=== PATIENT | male | born 1955 | race Caucasian/White ===

== ENCOUNTER 2019-11-02 11:52 | Outpatient (CLI) | payer OTHER, SELFPAY ==
--- NOTE | ~2019-11-02 | CT_ITS ---
EXAMINATION: CT abdomen pelvis w con DATE: 11/02/2019 13:10 INDICATION: Static bladder cancer presenting with acute abdominal pain. TECHNIQUE: Computed tomography (CT) of the abdomen and pelvis was performed with 100 mL Omnipaque-350 intravenous contrast. Automated exposure control and iterative reconstruction technique were employe d. The dose-length product was 289.15 mGy-cm. COMPARISON: 08/18/2019 FINDINGS: Minimal right basilar atelectasis. Heart size is normal. No pericardial or pleural effusion. Tip of a central venous catheter in the high right atrium. Fluid distention of the stomach with small amount of residual versus refluxed fluid in the distal esophagus. Mild central intrahepatic biliary ductal d ilation. No significant change in a 1.9 cm enhancing subcapsular hemangioma in the right hepatic lobe . The gallbladder and common bile duct are normal. Spleen, pancreas, left adrenal gland and left kidn ey are normal. There is mild right perinephric stranding with prominent urothelial enhancement at the right renal pe lvis. There is diffuse mildly delayed right nephrogram. Interval increase in extent of more distinct geographic regions of heterogeneous decreased cortical enhancement throughout the right kidney is mos t prominent in the anterior interpolar region of the right kidney. Findings are suspicious for pyelon ephritis. The right renal vein enhances to a less degree than the left renal vein which could be due to decreased perfusion although could not exclude tumor thrombus. There are new prominent contrast-en hanced right perinephric collateral vessels. No hydronephrosis. New 1.0 x 2.0 cm right adrenal nodule . Bladder is normal. Mild diverticulosis most prominent at the junction of the descending and sigmoid colon without adjace nt inflammatory change to suggest diverticular disease. Small bowel and appendix are normal. Prostate is normal. No free intraperitoneal gas or fluid. No pathologically enlarged abdominal or pelvic lymp hadenopathy. There is calcified atherosclerosis of the aorta and many of the other arteries. Increasi ng sclerosis at the margins of a lytic lesion enhancement on prior MRI consistent with metastatic dis ease at the superior aspect of L2 with destruction of a portion of the superior endplate. Mild thorac olumbar spondylosis. Interval healing of a prior pathologic fracture along the anterior margin of an additional lytic lesion at the left inferior pubic ramus. The lytic lesion appears smaller with new p eripheral rim sclerosis consistent with treated metastatic disease. IMPRESSION: 1. Delayed right nephrogram with geographic regions of further decrease in enhancement which could re present either pyelonephritis, infarcts or combination thereof with findings suggesting decreased per fusion including decreased enhancement of the left renal vein (there is a potentially enhancing tumor thrombus within the renal vein) and the presence of new left perinephric collaterals. 2. Increasing sclerosis at the margins of lytic lesions at L2 and the left inferior pubic ramus cyst with response to treatment of metastatic disease. 3. New 2.0 x 1.0 cm right adrenal nodule which could be metastatic, infectious or hemorrhage. Reviewed, dictated and finalized at location A. LUGGER IMPRESSION: 1. Delayed right nephrogram with geographic regions of further decrease in enha ncement which could represent either pyelonephritis, infarcts or combination th ereof with findings suggesting decreased perfusion including decreased enhancem ent of the left renal vein (there is a potentially enhancing tumor thrombus wit hin the renal vein) and the presence of new left perinephric collaterals. 2. Increasing sclerosis at the margins of lytic lesions at L2 and the left infe rior pubic
[2019-11-02 12:28] LABS: Basophils Absolute Auto 0.03 K/mm3 (0.00-0.10); Basophils Percent Auto 0.4 % (0.0-1.0); Eosinophils Absolute Auto 0.04 K/mm3 (0.02-0.50); Eosinophils Percent Auto 0.5 % (1.0-6.0); Hematocrit 32.4 % (40.0-54.0); Hemoglobin 11.1 g/dL (14.0-18.0); Immature Granulocyte Absolute 0.04 K/mm3 (0.00-0.00); Immature Granulocyte Percent A 0.5 % (0.0-0.0); Lymphocytes Absolute Auto 0.78 K/mm3 (1.10-4.50); Lymphocytes Percent Auto 10.3 % (18.0-42.0); Mean Corpuscular HGB Conc 34.3 g/dL (32.0-36.0); Mean Corpuscular Hemoglobin 30.2 pg (27.0-31.0); Mean Corpuscular Volume 88.3 fL (78.0-102.0); Mean Platelet Volume 8.8 fl (8.7-11.0); Monocytes Absolute Auto 0.67 K/mm3 (0.10-0.90); Monocytes Percent Auto 8.9 % (2.0-11.0); Neutrophils Percent Auto 79.4 % (50.0-70.0); Platelet Count Result 267 K/mm3 (150-420); Red Blood Count 3.67 M/mm3 (4.70-6.10); Red Cell Distribution Width 11.4 % (11.6-14.4); White Blood Count 7.5 K/mm3 (4.8-10.8)
[2019-11-02 12:43] LABS: Alanine Aminotransferase 11 U/L (16-63); Albumin Level 3.5 g/dL (3.4-5.0); Alkaline Phosphatase 103 U/L (46-116); Aspartate Amino Transferase 11 U/L (15-37); Bilirubin,Total 0.3 mg/dL (0.00-1.00); Blood Urea Nitrogen 16 mg/dL (7-18); Carbon Dioxide 30 mmol/L (21-32); Chloride 100 mmol/L (98-108); Estimated Glomerular Filt Rate 58; Glucose 149 mg/dL (70-99); Osmolality Calculated 294 mOsm/kg (285-295); Sodium 140 mmol/L (136-145); Total Protein 7.8 g/dL (6.4-8.2)
== END 2019-11-02 11:53 | disposition home or self-care (01) ==
LOC: CHSLAB 11:54
PROVIDERS: PCP Internal Medicine; Visit Provider Internal Medicine
DX: C67.9 Malignant neoplasm of bladder, unspecified (principal); R10.9 Unspecified abdominal pain
CPT/HCPCS: 36415; 74177; 80053; 85025; Q9965

== ENCOUNTER 2019-12-06 07:33 | Outpatient (CLI) | payer OTHER, SELFPAY ==
--- NOTE | ~2019-12-06 | CT_ITS ---
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 Additional 3D reconstructions utilizing coronal maximum intensity projection (MIP) were per formed. Automated exposure control and iterative reconstruction technique were employed. The dose-sloan gth product was 138.51 mGy-cm. COMPARISON: 08/18/2019 FINDINGS: Right internal jugular central venous port catheter with distal tip at the high right atrium. Unchang ed mild linear atelectasis/scarring at the left apex and right middle lobe. No suspicious pulmonary n odules, pneumonia, pulmonary edema or pleural effusion. Heart size is normal. No pericardial effusion . Thoracic aorta is normal in caliber with no dissection. Interval increase in size of a previously 1 .5 x 0.5 cm precarinal lymph node now measuring 2.3 x 1.1 cm. Similar increase in size of a less well -defined cluster of AP window lymph nodes. Increase in size of a now 3.7 x 2.8 cm right adrenal mass, most recently measuring 2.0 x 1.0 cm. There is effacement of the fat plane between the mass and the inferior vena cava with contour suggesting invasion of the inferior vena cava. Marked enlargement of the upper pole of the right kidney which now demonstrates relatively uniform hypoenhancement and with out appreciable surrounding perinephric stranding which is concerning for metastasis replacing the re nal tissue. The left adrenal gland and visualized upper pole of the left kidney are normal. Again see n is a hyperenhancing likely hemangioma at the periphery of the right hepatic lobe which can be seen dating back to 05/08/2017. No suspicious lytic or blastic bone lesions. IMPRESSION: 1. Significant interval increase in size of likely metastatic mediastinal lymphadenopathy. 2. Increase in size of a now 3.7 x 2.8 cm likely metastatic right adrenal mass which appears to poten tially invade the inferior vena cava. 3. Significant interval enlargement of the upper pole of the right kidney which is now homogeneously hypoenhancing but without surrounding inflammatory stranding to suggest either infarct or infection a nd this also concerning for metastatic disease. Reviewed, dictated and finalized at location A. IMPRESSION: 1. Significant interval increase in size of likely metastatic mediastinal lymph adenopathy. 2. Increase in size of a now 3.7 x 2.8 cm likely metastatic right adrenal mass which appears to potentially invade the inferior vena cava. 3. Significant interval enlargement of the upper pole of the right kidney which is now homogeneously hypoenhancing but without surrounding inflammatory strand ing to suggest either infarct or infection and this also concerning for metasta tic disease.
[2019-12-06 07:53] LABS: Estimated Glomerular Filt Rate 59
== END 2019-12-06 07:34 | disposition home or self-care (01) ==
LOC: CHSIMG 07:35
PROVIDERS: PCP Internal Medicine; Visit Provider Internal Medicine Hematology & Oncology
DX: C67.9 Malignant neoplasm of bladder, unspecified (principal); C79.51 Secondary malignant neoplasm of bone
CPT/HCPCS: 71260; Q9965

== ENCOUNTER 2019-12-09 13:58 | Outpatient (CLI) | payer OTHER, SELFPAY ==
--- NOTE | ~2019-12-09 | CT_ITS ---
EXAMINATION: CT soft tissue neck w con DATE: 12/09/2019 14:25 INDICATION: Cervical lymphadenopathy. Bladder cancer. TECHNIQUE: Computed tomography (CT) of the neck was performed with 75 mL Omnipaque-350 intravenous co ntrast. Automated exposure control and iterative reconstruction technique were employed. The dose-sloan gth product was 341.06 mGy-cm. COMPARISON: Neck CT 04/06/2019 FINDINGS: There is a 10 x 12 mm lymph node in the superior right paratracheal chain that is newly enl arged. There is a 10 x 10 mm node in right tracheoesophageal groove that is newly enlarged. Enlarged lymph nodes previously seen in the mediastinum and left neck have resolved. There is mild plaque in p roximal left internal carotid artery with 0% stenosis relative to normal distal artery lumen diameter . There is mild mucosal thickening in right maxillary sinus. Partially visualized is a right internal jugular port. There is severe cervical spondylosis. IMPRESSION: 1. Mildly enlarged lymph nodes in the superior right paratracheal chain and right tracheoesophageal g roove with interval worsening, consistent with metastatic disease. Enlarged nodes previously seen in the mediastinum and left neck have resolved. Reviewed, dictated and finalized at location A. IMPRESSION: 1. Mildly enlarged lymph nodes in the superior right paratracheal chain and rig ht tracheoesophageal groove with interval worsening, consistent with metastatic disease. Enlarged nodes previously seen in the mediastinum and left neck have resolved.
== END 2019-12-09 13:59 | disposition home or self-care (01) ==
LOC: CHSIMG 13:59
PROVIDERS: PCP Internal Medicine; Visit Provider Internal Medicine Hematology & Oncology
DX: C67.9 Malignant neoplasm of bladder, unspecified (principal)
CPT/HCPCS: 70491; Q9965

== ENCOUNTER 2019-12-20 07:52 | Outpatient (CLI) | payer OTHER, SELFPAY ==
[2019-12-20] VITALS (11 sets, daily range): BP systolic 90–128; BP diastolic 53–70; PULSE 76–92; RESP 14–16; TEMP 35.9–37.2; O2SAT 96–98
[2019-12-20 08:17] LABS: Basophils Absolute Auto 0.05 K/mm3 (0.00-0.10); Basophils Percent Auto 0.4 % (0.0-1.0); Eosinophils Absolute Auto 0.15 K/mm3 (0.02-0.50); Eosinophils Percent Auto 1.2 % (1.0-6.0); Immature Granulocyte Absolute 0.15 K/mm3 (0.00-0.00); Immature Granulocyte Percent A 1.2 % (0.0-0.0); Lymphocytes Absolute Auto 1.85 K/mm3 (1.10-4.50); Lymphocytes Percent Auto 15.4 % (18.0-42.0); Mean Corpuscular HGB Conc 32.2 g/dL (32.0-36.0); Mean Corpuscular Hemoglobin 28.1 pg (27.0-31.0); Mean Corpuscular Volume 87.3 fL (78.0-102.0); Mean Platelet Volume 8.9 fl (8.7-11.0); Monocytes Absolute Auto 1.06 K/mm3 (0.10-0.90); Monocytes Percent Auto 8.8 % (2.0-11.0); Neutrophils Absolute Auto 8.8 K/mm3 (1.7-7.2); Platelet Count Result 669 K/mm3 (150-420); Red Blood Count 2.28 M/mm3 (4.70-6.10); Red Cell Distribution Width 13.7 % (11.6-14.4); White Blood Count 12.1 K/mm3 (4.8-10.8)
[2019-12-20 08:18] LABS: Hemoglobin 6.4 g/dL (14.0-18.0)
[2019-12-20 08:19] LABS: Hematocrit 19.9 % (40.0-54.0)
[2019-12-20 08:27] LABS: Alanine Aminotransferase 18 U/L (16-63); Albumin Level 2.5 g/dL (3.4-5.0); Alkaline Phosphatase 91 U/L (46-116); Anion Gap 15.1 mmol/L (7-16); Aspartate Amino Transferase 18 U/L (15-37); Bilirubin,Total 0.2 mg/dL (0.00-1.00); Blood Urea Nitrogen 21 mg/dL (7-18); Calcium 9.4 mg/dL (8.5-10.1); Carbon Dioxide 27 mmol/L (21-32); Chloride 97 mmol/L (98-108); Estimated Glomerular Filt Rate 50; Glucose 142 mg/dL (70-99); Osmolality Calculated 285 mOsm/kg (285-295); Potassium 4.1 mmol/L (3.5-5.1); Sodium 135 mmol/L (136-145); Total Protein 6.8 g/dL (6.4-8.2)
[2019-12-20] MEDS: ACETAMINOPHEN 325 MG TABLET 650 MG PO (09:51)
[2019-12-20] MEDS: SODIUM CHLORIDE 0.9% IV 250 ML 30 ML IVPB (09:52)
[2019-12-20 12:24] LABS: Hematocrit 20.5 % (40.0-54.0)
[2019-12-20 12:26] LABS: Hemoglobin 6.6 g/dL (14.0-18.0)
[2019-12-20 15:26] LABS: Hematocrit 24.1 % (40.0-54.0)
[2019-12-20] MEDS: LORAZEPAM INJ 2 MG/ML VIAL 0.5 MG IV PUSH (15:30)
[2019-12-20] MEDS: FAMOTIDINE 20 MG/ISO 50 ML 20 MG/50 ML BAG 150 MG IVPB (15:32)
[2019-12-20] MEDS: SODIUM CHLORIDE 0.9% IV 250 ML 40 ML IVPB (15:34)
--- NOTE | 2019-12-20 15:48 | PC.NURSE ---
1532 Famotidine 20 mg IVPB administered over 20 min. start 1532 stop 1552.
[2019-12-20] MEDS: PALONOSETRON HCL 0.25 MG/5 ML VIAL IV PUSH (16:22)
[2019-12-20] MEDS: FOSAPREPITANT DIMEGLUMINE 150 MG in SODIUM CHLORIDE 0.9% IV 150 ML 300 MG IVPB (16:23)
[2019-12-20] MEDS: HEPARIN SOD FLUSH 500 UNITS/5 ML SYRINGE IV PUSH (17:58)
--- NOTE | 2019-12-20 18:08 | PC.NURSE ---
Patient here for Gemcitabine and carboplatin chemo infusion. Patient was treat last Jul and Aug with same regimen, but had stop r/t other health issues, but now is starting back up on chemo. Blood work reviewed. Hgb 6.4. Dr. Cotto notified. New orders to given 2 units of prbc's and recheck H/H. if >7.0 proceed with Chemo. Hgb 8.0 Proceeded with chemo. Pre Meds and Chemo administered. Patient tolerated well. Safe exit of hospital. Will return next 3 days for Zarxio injection.
== END 2019-12-20 07:53 | disposition home or self-care (01) ==
PROVIDERS: PCP Internal Medicine; Visit Provider Internal Medicine Hematology & Oncology
DX: Z51.11 Encounter for antineoplastic chemotherapy (principal); C67.9 Malignant neoplasm of bladder, unspecified; D70.1 Agranulocytosis secondary to cancer chemotherapy
CPT/HCPCS: 36415; 36430; 80053; 85014; 85018; 85025; 85055; 86850; 86900; 86901; 86923; 96365; 96367; 96374; 96375; 96413; 96417; A9270; J1200; J2060; J2469; J7050; P9016

== ENCOUNTER 2019-12-21 13:44 | Outpatient (CLI) | payer OTHER, SELFPAY ==
[2019-12-21] MEDS: FILGRASTIM-SNDZ 300 MCG/0.5 ML SYRINGE SUB-Q (14:16)
== END 2019-12-21 13:45 | disposition home or self-care (01) ==
PROVIDERS: PCP Internal Medicine; Visit Provider Internal Medicine Hematology & Oncology
DX: C67.9 Malignant neoplasm of bladder, unspecified (principal); D70.1 Agranulocytosis secondary to cancer chemotherapy
CPT/HCPCS: 96372; Q5101

== ENCOUNTER 2019-12-22 13:40 | Outpatient (CLI) | payer OTHER, SELFPAY ==
[2019-12-22] MEDS: FILGRASTIM-SNDZ 300 MCG/0.5 ML SYRINGE SUB-Q (14:12)
== END 2019-12-22 13:41 | disposition home or self-care (01) ==
PROVIDERS: PCP Internal Medicine; Visit Provider Internal Medicine Hematology & Oncology
DX: C67.9 Malignant neoplasm of bladder, unspecified (principal); D70.1 Agranulocytosis secondary to cancer chemotherapy
CPT/HCPCS: 96372; Q5101

== ENCOUNTER 2019-12-23 13:55 | Outpatient (CLI) | payer OTHER, SELFPAY ==
[2019-12-23] MEDS: FILGRASTIM-SNDZ 300 MCG/0.5 ML SYRINGE SUB-Q (14:13)
== END 2019-12-23 13:56 | disposition home or self-care (01) ==
PROVIDERS: PCP Internal Medicine; Visit Provider Internal Medicine Hematology & Oncology
DX: C67.9 Malignant neoplasm of bladder, unspecified (principal); D70.1 Agranulocytosis secondary to cancer chemotherapy
CPT/HCPCS: 96372; Q5101

== ENCOUNTER 2019-12-27 08:04 | Outpatient (CLI) | payer OTHER, SELFPAY ==
[2019-12-27 08:14] LABS: Basophils Absolute Auto 0.03 K/mm3 (0.00-0.10); Basophils Percent Auto 0.4 % (0.0-1.0); Eosinophils Absolute Auto 0.06 K/mm3 (0.02-0.50); Eosinophils Percent Auto 0.8 % (1.0-6.0); Hematocrit 25.9 % (40.0-54.0); Hemoglobin 8.5 g/dL (14.0-18.0); Immature Granulocyte Absolute 0.07 K/mm3 (0.00-0.00); Immature Granulocyte Percent A 0.9 % (0.0-0.0); Lymphocytes Absolute Auto 1.09 K/mm3 (1.10-4.50); Lymphocytes Percent Auto 13.8 % (18.0-42.0); Mean Corpuscular HGB Conc 32.8 g/dL (32.0-36.0); Mean Corpuscular Hemoglobin 28.7 pg (27.0-31.0); Mean Corpuscular Volume 87.5 fL (78.0-102.0); Monocytes Absolute Auto 0.36 K/mm3 (0.10-0.90); Monocytes Percent Auto 4.6 % (2.0-11.0); Neutrophils Absolute Auto 6.3 K/mm3 (1.7-7.2); Neutrophils Percent Auto 79.5 % (50.0-70.0); Platelet Count Result 249 K/mm3 (150-420); Red Blood Count 2.96 M/mm3 (4.70-6.10); Red Cell Distribution Width 13.5 % (11.6-14.4); White Blood Count 7.9 K/mm3 (4.8-10.8)
[2019-12-27 08:19] VITALS: BP 100/72; PULSE 108; RESP 18; TEMP 37.2
[2019-12-27 08:30] LABS: Alanine Aminotransferase 44 U/L (16-63); Albumin Level 2.6 g/dL (3.4-5.0); Alkaline Phosphatase 321 U/L (46-116); Anion Gap 15.3 mmol/L (7-16); Aspartate Amino Transferase 37 U/L (15-37); Bilirubin,Total 0.4 mg/dL (0.00-1.00); Blood Urea Nitrogen 23 mg/dL (7-18); Calcium 9.1 mg/dL (8.5-10.1); Carbon Dioxide 25 mmol/L (21-32); Chloride 95 mmol/L (98-108); Estimated Glomerular Filt Rate 58; Glucose 186 mg/dL (70-99); Osmolality Calculated 280 mOsm/kg (285-295); Potassium 4.3 mmol/L (3.5-5.1); Sodium 131 mmol/L (136-145); Total Protein 7.1 g/dL (6.4-8.2)
[2019-12-27] MEDS: SODIUM CHLORIDE 0.9% IV 250 ML 30 ML IVPB (09:15)
[2019-12-27] MEDS: FAMOTIDINE 20 MG/ISO 50 ML 20 MG/50 ML BAG 100 MG IVPB (09:16)
[2019-12-27 10:30] VITALS: BP 100/70; PULSE 78; RESP 14; TEMP 37.2; O2SAT 98
--- NOTE | 2019-12-27 10:32 | PC.NURSE ---
Patient here for day 8 of cycle chemo- Gemcitabine/Carboplatin q 21 days. Labs drawn and reviewed. Ok to proceed with treatment. Patient reports fatigue, but feels better than last weeks treatment. Chemo administered as ordered. Tolerated well. Safe exit of hospital.
[2019-12-27] MEDS: HEPARIN SOD FLUSH 500 UNITS/5 ML SYRINGE IV PUSH (10:36)
== END 2019-12-27 08:05 | disposition home or self-care (01) ==
LOC: CHSTREATRM 08:06
PROVIDERS: Visit Provider Internal Medicine Hematology & Oncology
DX: Z51.11 Encounter for antineoplastic chemotherapy (principal); C67.9 Malignant neoplasm of bladder, unspecified; D70.1 Agranulocytosis secondary to cancer chemotherapy
CPT/HCPCS: 36415; 80053; 85025; 96367; 96374; 96413; J1100; J1200; J7050; J9201

== ENCOUNTER 2020-01-09 15:03 | Outpatient (CLI) | payer OTHER, SELFPAY ==
[2020-01-09] VITALS (10 sets, daily range): BP systolic 96–125; BP diastolic 54–71; PULSE 60–75; RESP 18; TEMP 36.8–37.1; O2SAT 96–100
[2020-01-09 16:08] LABS: Hemoglobin 6.3 g/dL (14.0-18.0)
[2020-01-09 18:25] LABS: Alanine Aminotransferase 13 U/L (16-63); Albumin Level 2.7 g/dL (3.4-5.0); Alkaline Phosphatase 127 U/L (46-116); Anion Gap 12.4 mmol/L (7-16); Aspartate Amino Transferase 13 U/L (15-37); Bilirubin,Total 0.1 mg/dL (0.00-1.00); Blood Urea Nitrogen 18 mg/dL (7-18); Calcium 8.6 mg/dL (8.5-10.1); Carbon Dioxide 29 mmol/L (21-32); Chloride 105 mmol/L (98-108); Estimated Glomerular Filt Rate > 60; Glucose 126 mg/dL (70-99); Osmolality Calculated 297 mOsm/kg (285-295); Potassium 4.4 mmol/L (3.5-5.1); Sodium 142 mmol/L (136-145)
[2020-01-09 19:34] LABS: Hematocrit 19.8 % (40.0-54.0); Hemoglobin 6.4 g/dL (14.0-18.0)
--- NOTE | 2020-01-10 06:26 | PC.NURSE ---
Blood transfusion ended @ 2235. Time of 0635 is an error. Patient left building @ 2240.
== END 2020-01-09 15:04 | disposition home or self-care (01) ==
PROVIDERS: PCP Internal Medicine; Visit Provider Internal Medicine Hematology & Oncology
DX: C67.9 Malignant neoplasm of bladder, unspecified (principal); D70.1 Agranulocytosis secondary to cancer chemotherapy; D64.9 Anemia, unspecified
CPT/HCPCS: 36415; 36430; 80053; 85014; 85018; 86850; 86900; 86901; 86923; A9270; J7040; P9016

== ENCOUNTER 2020-01-10 07:56 | Outpatient (CLI) | payer OTHER, SELFPAY ==
[2020-01-10 08:18] LABS: Hematocrit 25.7 % (40.0-54.0); Hemoglobin 8.3 g/dL (14.0-18.0); Mean Corpuscular HGB Conc 32.3 g/dL (32.0-36.0); Mean Corpuscular Hemoglobin 28.8 pg (27.0-31.0); Mean Corpuscular Volume 89.2 fL (78.0-102.0); Mean Platelet Volume 9.8 fl (8.7-11.0); Platelet Count Result 129 K/mm3 (150-420); Red Blood Count 2.88 M/mm3 (4.70-6.10); Red Cell Distribution Width 15.5 % (11.6-14.4); White Blood Count 2.8 K/mm3 (4.8-10.8)
[2020-01-10 08:36] LABS: Band Neutrophils Percent 0 % (0-6); Basophils Percent Manual 0 % (0-1); Eosinophils Absolute Manual 0.02 K/mm3 (0.02-0.5); Eosinophils Percent Manual 1 % (1-6); Lymphocytes Absolute Manual 1.42 K/mm3 (1.1-4.5); Lymphocytes Percent Manual 51 % (18-44); Monocytes Absolute Manual 0.39 K/mm3 (0.1-0.90); Monocytes Percent Manual 14 % (3-9); Neutrophils Absolute Manual 0.95 K/mm3 (1.3-6.7); Neutrophils Percent Manual 34 % (46-73); Total Cells Counted 100
[2020-01-10 08:37] LABS: Platelet Estimate Adequate (Adequate)
--- NOTE | 2020-01-10 09:42 | PC.NURSE ---
FOLLOW UP CBC SENT TO LAB. PT UP IN CHAIR. A&OX3. HAS NO QUESTIONS OR CONCERNS. REMINDED TO CALL WITH NEEDS.
--- NOTE | 2020-01-10 09:43 | PC.NURSE ---
SPOKE WITH DR. HUERTA REGARDING LOW WBC AND ANC. ORDERS TO HOLD CHEMO UNTIL NEXT WEEK. PORT DEACCESED. PT DISCHARGED TO HOME AMB PER SELF TO SPOUSE.
== END 2020-01-10 07:57 | disposition home or self-care (01) ==
PROVIDERS: Visit Provider Internal Medicine Hematology & Oncology
DX: C67.9 Malignant neoplasm of bladder, unspecified (principal); D70.1 Agranulocytosis secondary to cancer chemotherapy
CPT/HCPCS: 36415; 85025

== ENCOUNTER 2020-01-17 08:01 | Outpatient (CLI) | payer OTHER, SELFPAY ==
[2020-01-17 08:32] LABS: Hematocrit 28.6 % (40.0-54.0); Hemoglobin 9.3 g/dL (14.0-18.0); Mean Corpuscular HGB Conc 32.5 g/dL (32.0-36.0); Mean Corpuscular Hemoglobin 29.8 pg (27.0-31.0); Mean Corpuscular Volume 91.7 fL (78.0-102.0); Platelet Count Result 327 K/mm3 (150-420); Red Blood Count 3.12 M/mm3 (4.70-6.10); Red Cell Distribution Width 16.2 % (11.6-14.4); White Blood Count 4.6 K/mm3 (4.8-10.8)
[2020-01-17 08:44] LABS: Alanine Aminotransferase 17 U/L (16-63); Albumin Level 2.8 g/dL (3.4-5.0); Alkaline Phosphatase 128 U/L (46-116); Anion Gap 12.3 mmol/L (7-16); Aspartate Amino Transferase 16 U/L (15-37); Bilirubin,Total 0.1 mg/dL (0.00-1.00); Blood Urea Nitrogen 16 mg/dL (7-18); Calcium 8.8 mg/dL (8.5-10.1); Carbon Dioxide 29 mmol/L (21-32); Chloride 104 mmol/L (98-108); Estimated Glomerular Filt Rate > 60; Glucose 165 mg/dL (70-99); Osmolality Calculated 297 mOsm/kg (285-295); Potassium 4.3 mmol/L (3.5-5.1); Sodium 141 mmol/L (136-145); Total Protein 6.6 g/dL (6.4-8.2)
[2020-01-17 08:50] LABS: Band Neutrophils Percent 0 % (0-6); Basophils Absolute Manual 0.04 K/mm3 (0-0.1); Basophils Percent Manual 1 % (0-1); Eosinophils Percent Manual 0 % (1-6); Lymphocytes Percent Manual 37 % (18-44); Monocytes Absolute Manual 0.64 K/mm3 (0.1-0.90); Monocytes Percent Manual 14 % (3-9); Neutrophils Percent Manual 48 % (46-73); Platelet Estimate Adequate (Adequate); Total Cells Counted 100
--- NOTE | 2020-01-17 09:03 | PCDIET ---
PT TO ROOM 201 AMB PER SELF. A&OX3. HAS NO QUESTIONS OR COMPLAINTS. ORIENTED TO ROOM. CALL YOU IN REACH. REMINDED TO CALL WITH NEEDS. PORT ACCESSED. BLOOD DRAWN AND SENT TO LAB.
[2020-01-17] MEDS: SODIUM CHLORIDE 0.9% IV 250 ML 75 ML IVPB (09:44)
[2020-01-17] MEDS: PALONOSETRON HCL 0.25 MG/5 ML VIAL IV PUSH (09:44)
[2020-01-17] MEDS: FAMOTIDINE 20 MG/ISO 50 ML 20 MG/50 ML BAG 100 MG IVPB (10:20)
[2020-01-17] MEDS: FOSAPREPITANT DIMEGLUMINE 150 MG in SODIUM CHLORIDE 0.9% IV 150 ML 300 MG IVPB (10:56)
[2020-01-17] MEDS: LORAZEPAM INJ 2 MG/ML VIAL 0.5 MG IV PUSH (11:30)
[2020-01-17 11:46] VITALS: BP 97/55; PULSE 55; RESP 18; TEMP 36.7; O2SAT 98
[2020-01-17] MEDS: HEPARIN SOD FLUSH 500 UNITS/5 ML SYRINGE IV PUSH (13:00)
--- NOTE | 2020-01-17 13:20 | PC.NURSE ---
All medications infused as ordered. Pt tolerated well. Discharged to home amb per self. waiting in parking lot.
== END 2020-01-17 08:02 | disposition home or self-care (01) ==
LOC: CHSTREATRM 08:04
PROVIDERS: PCP Internal Medicine; Visit Provider Internal Medicine Hematology & Oncology
DX: Z51.11 Encounter for antineoplastic chemotherapy (principal); C67.9 Malignant neoplasm of bladder, unspecified; D70.1 Agranulocytosis secondary to cancer chemotherapy
CPT/HCPCS: 36415; 80053; 85025; 96360; 96361; 96365; 96367; 96368; 96374; 96375; 96413; 96417; J1100; J1200; J1453; J2060; J2469; J7050; J9045; J9201

== ENCOUNTER 2020-01-18 12:51 | Outpatient (CLI) | payer OTHER, SELFPAY ==
[2020-01-18] MEDS: FILGRASTIM-SNDZ 300 MCG/0.5 ML SYRINGE SUB-Q (13:21)
== END 2020-01-18 12:52 | disposition home or self-care (01) ==
LOC: CHSTREATRM 12:55
PROVIDERS: PCP Internal Medicine; Visit Provider Internal Medicine Hematology & Oncology
DX: C67.9 Malignant neoplasm of bladder, unspecified (principal); D70.1 Agranulocytosis secondary to cancer chemotherapy
CPT/HCPCS: 96372; Q5101

== ENCOUNTER 2020-01-19 12:47 | Outpatient (CLI) | payer OTHER, SELFPAY ==
[2020-01-19] MEDS: FILGRASTIM-SNDZ 300 MCG/0.5 ML SYRINGE SUB-Q (13:05)
--- NOTE | 2020-01-19 13:05 | PC.NURSE ---
Injection given to patient in his truck in the parking lot with spouse present. Pt tolerated well.
== END 2020-01-19 12:48 | disposition home or self-care (01) ==
LOC: CHSTREATRM 12:49
PROVIDERS: PCP Internal Medicine; Visit Provider Internal Medicine Hematology & Oncology
DX: C67.9 Malignant neoplasm of bladder, unspecified (principal); D70.1 Agranulocytosis secondary to cancer chemotherapy
CPT/HCPCS: 96372; Q5101

== ENCOUNTER 2020-01-20 12:50 | Outpatient (CLI) | payer OTHER, SELFPAY ==
[2020-01-20] MEDS: FILGRASTIM-SNDZ 300 MCG/0.5 ML SYRINGE SUB-Q (13:19)
== END 2020-01-20 12:51 | disposition home or self-care (01) ==
LOC: CHSTREATRM 12:51
PROVIDERS: PCP Internal Medicine Hematology & Oncology; Visit Provider Internal Medicine Hematology & Oncology
DX: C67.9 Malignant neoplasm of bladder, unspecified (principal); D70.1 Agranulocytosis secondary to cancer chemotherapy
CPT/HCPCS: 96372; Q5101

== ENCOUNTER 2020-01-24 07:58 | Outpatient (CLI) | payer OTHER, SELFPAY ==
[2020-01-24 08:30] VITALS: BP 103/64; PULSE 58; RESP 16; TEMP 37.1; O2SAT 99
[2020-01-24 08:57] LABS: Hematocrit 26.4 % (40.0-54.0); Hemoglobin 8.7 g/dL (14.0-18.0); Mean Corpuscular Hemoglobin 29.7 pg (27.0-31.0); Mean Corpuscular Volume 90.1 fL (78.0-102.0); Mean Platelet Volume 9.7 fl (8.7-11.0); Platelet Count Result 193 K/mm3 (150-420); Red Blood Count 2.93 M/mm3 (4.70-6.10); Red Cell Distribution Width 15.6 % (11.6-14.4); White Blood Count 6.4 K/mm3 (4.8-10.8)
[2020-01-24 09:12] LABS: Alanine Aminotransferase 17 U/L (16-63); Albumin Level 2.8 g/dL (3.4-5.0); Anion Gap 13.2 mmol/L (7-16); Aspartate Amino Transferase 16 U/L (15-37); Bilirubin,Total 0.1 mg/dL (0.00-1.00); Blood Urea Nitrogen 16 mg/dL (7-18); Calcium 8.5 mg/dL (8.5-10.1); Carbon Dioxide 28 mmol/L (21-32); Chloride 102 mmol/L (98-108); Estimated Glomerular Filt Rate > 60; Glucose 121 mg/dL (70-99); Osmolality Calculated 290 mOsm/kg (285-295); Potassium 4.2 mmol/L (3.5-5.1); Sodium 139 mmol/L (136-145); Total Protein 6.2 g/dL (6.4-8.2)
[2020-01-24 09:22] LABS: Alkaline Phosphatase 136 U/L (46-116)
[2020-01-24 09:23] LABS: Band Neutrophils Percent 3 % (0-6); Basophils Absolute Manual 0.12 K/mm3 (0-0.1); Basophils Percent Manual 2 % (0-1); Eosinophils Percent Manual 0 % (1-6); Lymphocytes Absolute Manual 1.47 K/mm3 (1.1-4.5); Lymphocytes Percent Manual 23 % (18-44); Metamyelocytes Percent 3 %; Monocytes Percent Manual 11 % (3-9); Neutrophils Percent Manual 58 % (46-73); Platelet Estimate Adequate (Adequate); Total Cells Counted 100
[2020-01-24] MEDS: SODIUM CHLORIDE 0.9% IV 250 ML 50 ML IVPB (09:50)
[2020-01-24] MEDS: FAMOTIDINE 20 MG/ISO 50 ML 20 MG/50 ML BAG 100 MG IVPB (09:50)
--- NOTE | 2020-01-24 10:16 | PC.NURSE ---
PT TO ROOM 228 AMB PER SELF. A&OX3. HAS NO QUESTIONS OR CONCERNS. ORIENTED TO ROOM. CALL YOU IN REACH. REMINDED TO CALL WITH NEEDS.
[2020-01-24] MEDS: HEPARIN SOD FLUSH 500 UNITS/5 ML SYRINGE IV PUSH (12:01)
--- NOTE | 2020-01-24 12:06 | PC.NURSE ---
PT DISCHARGED FROM THE HOSPITAL PER SELF TO IN PARKING LOT. HAS NO QUESTIONS OR COMPLAINTS. TOLERATED TREATMENT WELL.
== END 2020-01-24 07:59 | disposition home or self-care (01) ==
LOC: CHSLAB 08:02 → CHSTREATRM 08:16
PROVIDERS: PCP Internal Medicine; Visit Provider Internal Medicine Hematology & Oncology
DX: Z51.11 Encounter for antineoplastic chemotherapy (principal); C67.9 Malignant neoplasm of bladder, unspecified; D70.1 Agranulocytosis secondary to cancer chemotherapy
CPT/HCPCS: 36415; 80053; 85025; 96365; 96367; 96368; 96374; 96375; 96413; J1100; J1200; J7050; J9201

== ENCOUNTER 2020-01-25 12:06 | Outpatient (CLI) | payer OTHER, SELFPAY ==
[2020-01-25] MEDS: FILGRASTIM-SNDZ 300 MCG/0.5 ML SYRINGE SUB-Q (12:25)
== END 2020-01-25 12:07 | disposition home or self-care (01) ==
LOC: CHSTREATRM 12:08
PROVIDERS: PCP Internal Medicine; Visit Provider Internal Medicine Hematology & Oncology
DX: C67.9 Malignant neoplasm of bladder, unspecified (principal); D70.1 Agranulocytosis secondary to cancer chemotherapy
CPT/HCPCS: 96372; Q5101

== ENCOUNTER 2020-01-26 12:10 | Outpatient (CLI) | payer OTHER, SELFPAY ==
[2020-01-26] MEDS: FILGRASTIM-SNDZ 300 MCG/0.5 ML SYRINGE SUB-Q (12:43)
== END 2020-01-26 12:11 | disposition home or self-care (01) ==
PROVIDERS: PCP Internal Medicine; Visit Provider Internal Medicine Hematology & Oncology
DX: C67.9 Malignant neoplasm of bladder, unspecified (principal); D70.1 Agranulocytosis secondary to cancer chemotherapy
CPT/HCPCS: 96372; Q5101

== ENCOUNTER 2020-01-27 12:24 | Outpatient (CLI) | payer OTHER, SELFPAY ==
[2020-01-27] MEDS: FILGRASTIM-SNDZ 300 MCG/0.5 ML SYRINGE SUB-Q (12:48)
== END 2020-01-27 12:25 | disposition home or self-care (01) ==
PROVIDERS: PCP Internal Medicine; Visit Provider Internal Medicine Hematology & Oncology
DX: C67.9 Malignant neoplasm of bladder, unspecified (principal); D70.1 Agranulocytosis secondary to cancer chemotherapy
CPT/HCPCS: 96372; Q5101

== ENCOUNTER 2020-02-07 08:12 | Outpatient (CLI) | payer OTHER, SELFPAY ==
[2020-02-07 08:41] LABS: Hematocrit 24.6 % (40.0-54.0); Hemoglobin 8.2 g/dL (14.0-18.0); Immature Platelet Fraction Pct 1.9 % (1.0-7.0); Mean Corpuscular HGB Conc 33.3 g/dL (32.0-36.0); Mean Corpuscular Volume 90.1 fL (78.0-102.0); Mean Platelet Volume 10.1 fl (8.7-11.0); Platelet Count Result 87 K/mm3 (150-420); Red Blood Count 2.73 M/mm3 (4.70-6.10); Red Cell Distribution Width 16.5 % (11.6-14.4); White Blood Count 5.2 K/mm3 (4.8-10.8)
--- NOTE | 2020-02-07 08:41 | PC.NURSE ---
Pt to room 202 amb per self. Up in chair. A&Ox3. Has no questions, complaints or concerns. Oriented to room. Call campbell in reach. Drinks and breakfast offered, pt refused. Reminded to call with needs.
[2020-02-07 08:51] LABS: Alanine Aminotransferase 19 U/L (16-63); Albumin Level 3.2 g/dL (3.4-5.0); Alkaline Phosphatase 134 U/L (46-116); Anion Gap 10.3 mmol/L (7-16); Aspartate Amino Transferase 17 U/L (15-37); Bilirubin,Total 0.2 mg/dL (0.00-1.00); Blood Urea Nitrogen 16 mg/dL (7-18); Calcium 8.9 mg/dL (8.5-10.1); Carbon Dioxide 30 mmol/L (21-32); Chloride 105 mmol/L (98-108); Estimated Glomerular Filt Rate 57; Glucose 113 mg/dL (70-99); Osmolality Calculated 294 mOsm/kg (285-295); Potassium 4.3 mmol/L (3.5-5.1); Sodium 141 mmol/L (136-145); Total Protein 6.5 g/dL (6.4-8.2)
--- NOTE | 2020-02-07 09:09 | PC.NURSE ---
Labs resulted. Platelets 87. Orders state to call MD if less than 100. Call placed to Dr. Cotto's nurse. Message left. Awaiting return call.
[2020-02-07 09:14] LABS: Band Neutrophils Percent 0 % (0-6); Eosinophils Absolute Manual 0.05 K/mm3 (0.02-0.5); Eosinophils Percent Manual 1 % (1-6); Lymphocytes Percent Manual 29 % (18-44); Monocytes Absolute Manual 0.31 K/mm3 (0.1-0.90); Monocytes Percent Manual 6 % (3-9); Neutrophils Absolute Manual 3.32 K/mm3 (1.3-6.7); Neutrophils Percent Manual 64 % (46-73); Platelet Estimate Decreased (Adequate); Total Cells Counted 100
--- NOTE | 2020-02-07 10:03 | PC.NURSE ---
Chemotherapy cancelled for today and rescheduled for next week per Dr. Cotto due to decreased platelet count. Pt discharged to home amb per self without questions or concerns.
== END 2020-02-07 08:13 | disposition home or self-care (01) ==
LOC: CHSTREATRM 08:14 → CHSLAB 10:27
PROVIDERS: PCP Internal Medicine; Visit Provider Internal Medicine Hematology & Oncology
DX: C67.9 Malignant neoplasm of bladder, unspecified (principal); D70.1 Agranulocytosis secondary to cancer chemotherapy
CPT/HCPCS: 36415; 80053; 85025; 85055

== ENCOUNTER 2020-02-14 08:43 | Outpatient (CLI) | payer OTHER, SELFPAY ==
[2020-02-14 08:57] LABS: Hematocrit 26.8 % (40.0-54.0); Hemoglobin 8.9 g/dL (14.0-18.0); Mean Corpuscular HGB Conc 33.2 g/dL (32.0-36.0); Mean Corpuscular Hemoglobin 30.5 pg (27.0-31.0); Mean Corpuscular Volume 91.8 fL (78.0-102.0); Platelet Count Result 250 K/mm3 (150-420); Red Blood Count 2.92 M/mm3 (4.70-6.10); Red Cell Distribution Width 17.3 % (11.6-14.4); White Blood Count 4.6 K/mm3 (4.8-10.8)
[2020-02-14 09:10] LABS: Alanine Aminotransferase 19 U/L (16-63); Albumin Level 3.2 g/dL (3.4-5.0); Alkaline Phosphatase 117 U/L (46-116); Anion Gap 12.1 mmol/L (7-16); Aspartate Amino Transferase 18 U/L (15-37); Bilirubin,Total 0.2 mg/dL (0.00-1.00); Blood Urea Nitrogen 10 mg/dL (7-18); Carbon Dioxide 31 mmol/L (21-32); Chloride 104 mmol/L (98-108); Estimated Glomerular Filt Rate > 60; Glucose 115 mg/dL (70-99); Osmolality Calculated 296 mOsm/kg (285-295); Potassium 4.1 mmol/L (3.5-5.1); Sodium 143 mmol/L (136-145); Total Protein 6.6 g/dL (6.4-8.2)
[2020-02-14 09:14] LABS: Band Neutrophils Percent 1 % (0-6); Basophils Absolute Manual 0.04 K/mm3 (0-0.1); Basophils Percent Manual 1 % (0-1); Eosinophils Absolute Manual 0.23 K/mm3 (0.02-0.5); Eosinophils Percent Manual 5 % (1-6); Lymphocytes Absolute Manual 1.28 K/mm3 (1.1-4.5); Lymphocytes Percent Manual 28 % (18-44); Monocytes Absolute Manual 0.18 K/mm3 (0.1-0.90); Monocytes Percent Manual 4 % (3-9); Neutrophils Absolute Manual 2.85 K/mm3 (1.3-6.7); Neutrophils Percent Manual 61 % (46-73); Platelet Estimate Adequate (Adequate); Total Cells Counted 100
[2020-02-14 09:16] VITALS: BP 127/69; PULSE 72; RESP 14; TEMP 36.6; O2SAT 96
[2020-02-14] MEDS: FAMOTIDINE 20 MG/ISO 50 ML 20 MG/50 ML BAG 100 MG IVPB (09:50)
[2020-02-14] MEDS: SODIUM CHLORIDE 0.9% IV 250 ML 40 ML IVPB (10:00)
[2020-02-14] MEDS: PALONOSETRON HCL 0.25 MG/5 ML VIAL IV PUSH (10:02)
[2020-02-14] MEDS: LORAZEPAM INJ 2 MG/ML VIAL 0.5 MG IV PUSH (10:02)
[2020-02-14] MEDS: FOSAPREPITANT DIMEGLUMINE 150 MG in SODIUM CHLORIDE 0.9% IV 150 ML 300 MG IVPB (10:34)
[2020-02-14 12:15] VITALS: BP 120/67; PULSE 68; RESP 14; TEMP 36.6; O2SAT 97
[2020-02-14] MEDS: HEPARIN SOD FLUSH 500 UNITS/5 ML SYRINGE IV PUSH (12:18)
--- NOTE | 2020-02-14 12:24 | PC.NURSE ---
PATIENT HERE FOR CYCLE 7 DAY 1 OF CARBO/GEMCITABINE CHEMO REGIMEN. NO CONCERNS VOICED. LABS REVIEWED AND GOOD. CHEMO ADMINISTERED. PATIENT TOLERATED IT VERY WELL THIS CYCLE. WILL BE BACK FOR DAY 2 ZARXIO INJECTION TOMORROW. AMBULATED SAFELY TO EXIT OF HOSPITAL.
== END 2020-02-14 08:44 | disposition home or self-care (01) ==
LOC: CHSTREATRM 08:45
PROVIDERS: PCP Internal Medicine; Visit Provider Internal Medicine Hematology & Oncology
DX: Z51.11 Encounter for antineoplastic chemotherapy (principal); C67.9 Malignant neoplasm of bladder, unspecified; D70.1 Agranulocytosis secondary to cancer chemotherapy
CPT/HCPCS: 36415; 80053; 85025; 96367; 96368; 96375; 96413; 96417; J1100; J1200; J1453; J2060; J2469; J7050; J9045; J9201

== ENCOUNTER 2020-02-15 11:46 | Outpatient (CLI) | payer OTHER, SELFPAY ==
[2020-02-15] MEDS: FILGRASTIM-SNDZ 300 MCG/0.5 ML SYRINGE SUB-Q (12:15)
--- NOTE | 2020-02-15 12:15 | PC.NURSE ---
[employer] to parking lot, to patients car. Injection given in [place] per protocol. No redness, edema or drainage noted. Pt tolerated well. Pt and spouse without questions or concerns. Pt and spouse drove out of parking lot safely.
== END 2020-02-15 11:47 | disposition home or self-care (01) ==
PROVIDERS: PCP Internal Medicine; Visit Provider Internal Medicine Hematology & Oncology
DX: D70.1 Agranulocytosis secondary to cancer chemotherapy (principal); C67.9 Malignant neoplasm of bladder, unspecified
CPT/HCPCS: 96372; Q5101

== ENCOUNTER 2020-02-16 11:51 | Outpatient (CLI) | payer OTHER, SELFPAY ==
[2020-02-16] MEDS: FILGRASTIM-SNDZ 300 MCG/0.5 ML SYRINGE SUB-Q (12:08)
== END 2020-02-16 11:52 | disposition home or self-care (01) ==
LOC: CHSTREATRM 11:52
PROVIDERS: PCP Internal Medicine; Visit Provider Internal Medicine Hematology & Oncology
DX: C67.9 Malignant neoplasm of bladder, unspecified (principal); D70.1 Agranulocytosis secondary to cancer chemotherapy
CPT/HCPCS: 96372; Q5101

== ENCOUNTER 2020-02-17 11:49 | Outpatient (CLI) | payer OTHER, SELFPAY ==
[2020-02-17] MEDS: FILGRASTIM-SNDZ 300 MCG/0.5 ML SYRINGE SUB-Q (12:30)
== END 2020-02-17 11:50 | disposition home or self-care (01) ==
PROVIDERS: PCP Internal Medicine; Visit Provider Internal Medicine Hematology & Oncology
DX: C67.9 Malignant neoplasm of bladder, unspecified (principal); D70.1 Agranulocytosis secondary to cancer chemotherapy
CPT/HCPCS: 96372; Q5101

== ENCOUNTER 2020-02-21 08:33 | Outpatient (CLI) | payer OTHER, SELFPAY ==
[2020-02-21 08:45] LABS: Hematocrit 28.7 % (40.0-54.0); Hemoglobin 9.6 g/dL (14.0-18.0); Mean Corpuscular HGB Conc 33.4 g/dL (32.0-36.0); Mean Corpuscular Hemoglobin 30.2 pg (27.0-31.0); Mean Corpuscular Volume 90.3 fL (78.0-102.0); Mean Platelet Volume 8.8 fl (8.7-11.0); Platelet Count Result 207 K/mm3 (150-420); Red Blood Count 3.18 M/mm3 (4.70-6.10); Red Cell Distribution Width 16.2 % (11.6-14.4)
[2020-02-21 08:59] LABS: Alanine Aminotransferase 23 U/L (16-63); Albumin Level 3.7 g/dL (3.4-5.0); Alkaline Phosphatase 136 U/L (46-116); Anion Gap 11.4 mmol/L (7-16); Aspartate Amino Transferase 19 U/L (15-37); Bilirubin,Total 0.2 mg/dL (0.00-1.00); Blood Urea Nitrogen 17 mg/dL (7-18); Calcium 8.9 mg/dL (8.5-10.1); Carbon Dioxide 28 mmol/L (21-32); Chloride 102 mmol/L (98-108); Estimated Glomerular Filt Rate > 60; Glucose 135 mg/dL (70-99); Osmolality Calculated 287 mOsm/kg (285-295); Potassium 4.4 mmol/L (3.5-5.1); Sodium 137 mmol/L (136-145); Total Protein 7.2 g/dL (6.4-8.2)
[2020-02-21 09:00] VITALS: BP 139/79; PULSE 66; RESP 20; TEMP 37.3; O2SAT 95
[2020-02-21 09:06] LABS: Band Neutrophils Percent 2 % (0-6); Basophils Absolute Manual 0.08 K/mm3 (0-0.1); Basophils Percent Manual 1 % (0-1); Eosinophils Percent Manual 5 % (1-6); Lymphocytes Absolute Manual 2.08 K/mm3 (1.1-4.5); Lymphocytes Percent Manual 26 % (18-44); Metamyelocytes Percent 0 %; Monocytes Percent Manual 5 % (3-9); Myelocytes Percent 0 %; Neutrophils Absolute Manual 5.04 K/mm3 (1.3-6.7); Neutrophils Percent Manual 61 % (46-73); Platelet Estimate Adequate (Adequate); Total Cells Counted 100
[2020-02-21] MEDS: FAMOTIDINE 20 MG/ISO 50 ML 20 MG/50 ML BAG 100 MG IVPB (09:19)
[2020-02-21] MEDS: SODIUM CHLORIDE 0.9% IV 250 ML 30 ML IVPB (09:20)
--- NOTE | 2020-02-21 11:10 | PC.NURSE ---
Addendum entered by Theodora iFtzpatrick RN 02/21/20 11:11: change time to 1111 note to 0845. Original Note: Pt to room 226 amb per self. a&ox3. Has no questions or complaints. Oriented to room. Call campbell in reach. Waiting for lab results. Reminded to call with needs.
[2020-02-21] MEDS: HEPARIN SOD FLUSH 500 UNITS/5 ML SYRINGE IV PUSH (11:22)
--- NOTE | 2020-02-21 11:28 | PCDIET ---
All medications infused as ordered. Pt tolerated well. Patient has no complaints. Discharged to home amb per self, waiting in parking lot.
== END 2020-02-21 08:34 | disposition home or self-care (01) ==
LOC: CHSTREATRM 08:36
PROVIDERS: PCP Internal Medicine; Visit Provider Internal Medicine Hematology & Oncology
DX: Z51.11 Encounter for antineoplastic chemotherapy (principal); C67.9 Malignant neoplasm of bladder, unspecified; D70.1 Agranulocytosis secondary to cancer chemotherapy
CPT/HCPCS: 36415; 80053; 85025; 96365; 96367; 96368; 96374; 96375; 96413; J1100; J1200; J7050; J9201

== ENCOUNTER 2020-02-22 11:47 | Outpatient (CLI) | payer OTHER, SELFPAY ==
[2020-02-22] MEDS: FILGRASTIM-SNDZ 300 MCG/0.5 ML SYRINGE SUB-Q (12:23)
== END 2020-02-22 11:48 | disposition home or self-care (01) ==
PROVIDERS: PCP Internal Medicine; Visit Provider Internal Medicine Hematology & Oncology
DX: C67.9 Malignant neoplasm of bladder, unspecified (principal); D70.1 Agranulocytosis secondary to cancer chemotherapy
CPT/HCPCS: 96372; Q5101

== ENCOUNTER 2020-02-23 12:14 | Outpatient (CLI) | payer OTHER, SELFPAY ==
[2020-02-23] MEDS: FILGRASTIM-SNDZ 300 MCG/0.5 ML SYRINGE SUB-Q (12:33)
== END 2020-02-23 12:15 | disposition home or self-care (01) ==
LOC: CHSTREATRM 12:16
PROVIDERS: PCP Internal Medicine; Visit Provider Internal Medicine Hematology & Oncology
DX: C67.9 Malignant neoplasm of bladder, unspecified (principal); D70.1 Agranulocytosis secondary to cancer chemotherapy
CPT/HCPCS: 96372; Q5101

== ENCOUNTER 2020-02-24 11:35 | Outpatient (CLI) | payer OTHER, SELFPAY ==
[2020-02-24] MEDS: FILGRASTIM-SNDZ 300 MCG/0.5 ML SYRINGE SUB-Q (12:26)
== END 2020-02-24 11:36 | disposition home or self-care (01) ==
LOC: CHSTREATRM 11:37
PROVIDERS: PCP Internal Medicine; Visit Provider Internal Medicine Hematology & Oncology
DX: C67.9 Malignant neoplasm of bladder, unspecified (principal); D70.1 Agranulocytosis secondary to cancer chemotherapy
CPT/HCPCS: 96372; Q5101

== ENCOUNTER 2020-02-28 07:24 | Outpatient (CLI) | payer OTHER, SELFPAY ==
--- NOTE | ~2020-02-28 | CT_ITS ---
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 TECHNIQUE: Computed tomography (CT) of the neck, chest, abdomen, and pelvis was performed with 100 mL Omnipaque 350 intravenous contrast. Automated exposure control and iterative reconstruction techniqu e were employed. The dose-length product was 790.79 mGy-cm. COMPARISON: Neck CT 12/09/2019, chest CT 12/06/2019, CT abdomen and pelvis 11/02/2019, 05/08/17 FINDINGS: NECK CT: There are no pathologically enlarged lymph nodes. There is mild plaque in proximal left internal hugo tid artery with 0% stenosis relative to normal distal artery lumen diameter. There is a mucous retent ion cyst in right maxillary sinus. There is severe cervical spondylosis. CHEST CT: There is mild emphysema. There is mild atelectasis bilaterally. No pleural effusion. There is a right internal jugular port with tip in right atrium. The heart size is normal. No pericardial effusion. T here are no pathologically enlarged lymph nodes. ABDOMEN/PELVIS CT: There is a 1.8 cm hyperenhancing mass in right hepatic lobe, stable from 05/08/17, likely a hemangioma or focal nodular hyperplasia. The gallbladder, spleen, pancreas, adrenal glands, and left kidney are normal. There is moderate atrophy of right kidney, which is hypoenhancing. There is diverticulosis o f the colon without evidence of diverticulitis. There are no dilated loops of bowel. There are no pat hologically enlarged lymph nodes. There is no free intraperitoneal fluid. There is a lytic lesion in medial right acetabulum. There is a lytic lesion in left inferior pubic ramus. There is a lytic lesio n in right parasymphyseal pubis. There is a mixed lytic and sclerotic lesion in L2 vertebral body ant eriorly. There is a Schmorl's node of L2 superior endplate. IMPRESSION: 1. Bone lesions with worsening from 11/02/2019, consistent with metastatic disease. 2. Worsened moderate atrophy of right kidney. Worsened hypoenhancement of right kidney may be infarct . Reviewed, dictated and finalized at location A. IMPRESSION: 1. Bone lesions with worsening from 11/02/2019, consistent with metastatic disea se. 2. Worsened moderate atrophy of right kidney. Worsened hypoenhancement of right kidney may be infarct.
== END 2020-02-28 07:25 | disposition home or self-care (01) ==
LOC: CHSIMG 07:26
PROVIDERS: PCP Internal Medicine; Visit Provider Internal Medicine Hematology & Oncology
DX: C67.9 Malignant neoplasm of bladder, unspecified (principal)
CPT/HCPCS: 70491; 71260; 74177; Q9965

== ENCOUNTER 2020-04-18 14:11 | Outpatient (CLI) | payer OTHER, SELFPAY ==
[2020-04-18 14:28] LABS: Hematocrit 28.1 % (40.0-54.0); Hemoglobin 9.5 g/dL (14.0-18.0); Mean Corpuscular HGB Conc 33.8 g/dL (32.0-36.0); Mean Corpuscular Hemoglobin 32.4 pg (27.0-31.0); Mean Corpuscular Volume 95.9 fL (78.0-102.0); Mean Platelet Volume 9.1 fl (8.7-11.0); Platelet Count Result 226 K/mm3 (150-420); Red Blood Count 2.93 M/mm3 (4.70-6.10); Red Cell Distribution Width 12.8 % (11.6-14.4); White Blood Count 7.8 K/mm3 (4.8-10.8)
[2020-04-18] MEDS: HEPARIN SOD FLUSH 500 UNITS/5 ML SYRINGE IV PUSH (14:34)
[2020-04-18 14:54] LABS: Band Neutrophils Percent 0 % (0-6); Lymphocytes Absolute Manual 1.87 K/mm3 (1.1-4.5); Lymphocytes Percent Manual 24 % (18-44); Neutrophils Absolute Manual 5.07 K/mm3 (1.3-6.7); Neutrophils Percent Manual 65 % (46-73); Total Cells Counted 100
[2020-04-18 14:55] LABS: Basophils Absolute Manual 0.07 K/mm3 (0-0.1); Basophils Percent Manual 1 % (0-1); Eosinophils Percent Manual 0 % (1-6); Monocytes Absolute Manual 0.78 K/mm3 (0.1-0.90); Monocytes Percent Manual 10 % (3-9); Platelet Estimate Adequate (Adequate)
[2020-04-18 15:22] LABS: Alanine Aminotransferase 15 U/L (16-63); Albumin Level 3.5 g/dL (3.4-5.0); Alkaline Phosphatase 115 U/L (46-116); Anion Gap 12.3 mmol/L (7-16); Aspartate Amino Transferase 14 U/L (15-37); Bilirubin,Total 0.3 mg/dL (0.00-1.00); Blood Urea Nitrogen 19 mg/dL (7-18); Calcium 8.7 mg/dL (8.5-10.1); Carbon Dioxide 28 mmol/L (21-32); Chloride 101 mmol/L (98-108); Estimated Glomerular Filt Rate 44; Glucose 104 mg/dL (70-99); Osmolality Calculated 286 mOsm/kg (285-295); Potassium 4.3 mmol/L (3.5-5.1); Sodium 137 mmol/L (136-145); Total Protein 6.9 g/dL (6.4-8.2)
== END 2020-04-18 14:12 | disposition home or self-care (01) ==
LOC: CHSLAB 14:14
PROVIDERS: PCP Internal Medicine; Visit Provider Internal Medicine Hematology & Oncology
DX: C67.9 Malignant neoplasm of bladder, unspecified (principal)
CPT/HCPCS: 36415; 80053; 85025

== ENCOUNTER 2020-05-22 07:49 | Outpatient (CLI) | payer OTHER, SELFPAY ==
--- NOTE | ~2020-05-22 | CT_ITS ---
EXAMINATION: CT abdomen pelvis w con INDICATION: Lower abdominal pain, history of bladder cancer TECHNIQUE: Computed tomographic images of the abdomen and pelvis were obtained after the administrati on of 100 cc of Omnipaque 350 intravenous contrast. The dose-length product (DLP) was 261.47 mGy-cm. Automated exposure control and iterative reconstruction technique were employed. COMPARISON: 02/28/2020 FINDINGS: Minimal dependent atelectasis is present in the lung bases. The heart size is normal. There is a stable subcapsular area of hypoenhancement in the right hepatic lobe which previously demonstra daniel arterial enhancement, likely a hemangioma or focal nodular hyperplasia. The spleen, pancreas, gal lbladder, and adrenal glands are normal. The left kidney is unremarkable. There is unchanged atrophy and hypoenhancement of the right kidney. There is calcified atherosclerosis of the aorta and many of the other arteries. The appendix is normal. Colonic diverticulosis is present without evidence of div erticulitis. There is no free intraperitoneal gas or evidence of bowel obstruction. There is mild cir cumferential bladder wall thickening. There appears to be a small area of hyperattenuation within the posterior bladder wall in the midline as well as at the left anterolateral aspect of the bladder wit h focally increased wall thickening. No pathologically enlarged abdominal or pelvic lymph nodes are i dentified. Lytic lesions are again noted in the medial right acetabulum, the left inferior pubic amber s, the right parasymphyseal pubis as well as in the L2 vertebral body. No definite new lytic lesions are identified. IMPRESSION: 1. Focal areas of bladder wall thickening with associated hyperdensity, possibly bladder wall hemorrh age. 2. Unchanged osseous metastatic disease. Reviewed, dictated and finalized at location B. IMPRESSION: 1. Focal areas of bladder wall thickening with associated hyperdensity, possibl y bladder wall hemorrhage. 2. Unchanged osseous metastatic disease.
--- NOTE | 2020-05-22 08:07 | PC.NURSE ---
0800 PATIENT HERE FOR BLOOD WORK. 20 G SEGOVIA NEEDLE ACCESSED RIGHT SIDED CHEST PORT A CATH. GOOD BLOOD RETURN- BLOOD DRAWN FOR LAB. PORT NEEDLE FLUSHED WITH NORMAL SALINE AND HEPARIN LOCK FLUSH PER PROTOCOL. SEGOVIA NEEDLE REMOVED. SITE ASYSTOMATIC OF S/SX OF INFECTION.
[2020-05-22 08:08] LABS: Hematocrit 29.5 % (40.0-54.0); Hemoglobin 9.5 g/dL (14.0-18.0); Mean Corpuscular HGB Conc 32.2 g/dL (32.0-36.0); Mean Corpuscular Hemoglobin 29.2 pg (27.0-31.0); Mean Corpuscular Volume 90.8 fL (78.0-102.0); Mean Platelet Volume 9.1 fl (8.7-11.0); Platelet Count Result 269 K/mm3 (150-420); Red Blood Count 3.25 M/mm3 (4.70-6.10); Red Cell Distribution Width 12.8 % (11.6-14.4); White Blood Count 6.8 K/mm3 (4.8-10.8)
[2020-05-22] MEDS: HEPARIN SOD FLUSH 500 UNITS/5 ML SYRINGE IV PUSH (08:11)
[2020-05-22 08:21] LABS: Alanine Aminotransferase 15 U/L (16-63); Albumin Level 3.4 g/dL (3.4-5.0); Alkaline Phosphatase 98 U/L (46-116); Anion Gap 6 mmol/L (8-16); Aspartate Amino Transferase 11 U/L (15-37); Bilirubin,Total 0.2 mg/dL (0.00-1.00); Blood Urea Nitrogen 15 mg/dL (7-18); Calcium 9.3 mg/dL (8.5-10.1); Carbon Dioxide 29 mmol/L (21-32); Chloride 103 mmol/L (98-108); Estimated Glomerular Filt Rate 47; Glucose 115 mg/dL (70-99); Osmolality Calculated 287 mOsm/kg (285-295); Potassium 4.3 mmol/L (3.5-5.1); Sodium 138 mmol/L (136-145); Total Protein 8.1 g/dL (6.4-8.2)
[2020-05-22 08:46] LABS: Band Neutrophils Percent 0 % (0-6); Basophils Percent Manual 0 % (0-1); Eosinophils Percent Manual 3 % (1-6); Lymphocytes Absolute Manual 1.02 K/mm3 (1.1-4.5); Lymphocytes Percent Manual 15 % (18-44); Monocytes Absolute Manual 0.47 K/mm3 (0.1-0.90); Monocytes Percent Manual 7 % (3-9); Neutrophils Percent Manual 75 % (46-73); Total Cells Counted 100
[2020-05-22 08:47] LABS: Platelet Estimate Adequate (Adequate)
[2020-05-25 14:09] LABS: Amylase 38 U/L (25-115); Lipase 42 U/L (73-393)
== END 2020-05-22 07:50 | disposition home or self-care (01) ==
PROVIDERS: PCP Internal Medicine; Visit Provider Internal Medicine Hematology & Oncology
DX: C67.9 Malignant neoplasm of bladder, unspecified (principal); R10.9 Unspecified abdominal pain
CPT/HCPCS: 36415; 74177; 80053; 82150; 83690; 85025; Q9965

== ENCOUNTER 2020-06-26 08:33 | Outpatient (CLI) | payer OTHER, SELFPAY ==
[2020-06-26 09:01] LABS: Estimated Glomerular Filt Rate 6
== END 2020-06-26 08:34 | disposition home or self-care (01) ==
LOC: CHSIMG 08:34
PROVIDERS: PCP Internal Medicine; Visit Provider Internal Medicine Hematology & Oncology
DX: C67.9 Malignant neoplasm of bladder, unspecified (principal)
CPT/HCPCS: 99199

== ENCOUNTER 2020-06-26 09:27 | Emergency (ER) | payer OTHER, SELFPAY ==
[2020-06-26] VITALS (12 sets, daily range): BP systolic 100–178; BP diastolic 74–107; PULSE 74–111; RESP 4–22; TEMP 36.3; O2SAT 87–100
--- NOTE | ~2020-06-26 | CT_ITS ---
EXAMINATION: CT soft tiss nk chst ab pel wo DATE: 06/26/2020 11:37 INDICATION: Metastatic disease. Confusion. TECHNIQUE: Computed tomography (CT) of the neck, chest, abdomen, and pelvis was performed without int ravenous contrast. Automated exposure control and iterative reconstruction technique were employed. T he dose-length product was 1166.15 mGy-cm. COMPARISON: CT studies dated 02/28/2020 at 05/22/2020 FINDINGS: NECK CT: No pathologically enlarged maxillofacial or cervical lymphadenopathy. Interval increase in size of a single left level 2 jugular chain lymph node which has increased from 9 x 5 mm to currently measuring 1.5 x 0.8 cm which remains within normal limits. No other pathologically enlarged or enlarging lymph adenopathy. Mild atherosclerotic calcific calcification at the left carotid bulb. Mucous retention cy st in the right maxillary sinus. Mastoid air cells and middle ear cavities are clear. Severe cervical spondylosis. No suspicious lytic or blastic bone lesions. CHEST CT: Right internal jugular central venous port catheter with distal tip near the superior cavoatrial junc tion. Mild emphysema. Scattered regions of tree-in-bud opacity and centrilobular groundglass opacitie s throughout the right lung consistent with endobronchial spread of disease most likely pneumonia wit h differential including less likely aspiration or pulmonary hemorrhage. Small left pleural effusion. Heart size is normal. Atherosclerotic coronary artery calcification. No pericardial effusion. Diffus e wall thickening in the mid to distal esophagus which could be seen with esophagitis. Thoracic aort a is normal in caliber. Interval increase in size of a previously 11 x 5 mm, currently 2.6 x 1.2 cm s ubcarinal lymph node. Additionally there is been increase in size of a previously 5 x 7 mm left axill haydee lymph node currently measuring 10 x 8 mm. Diffuse mild thoracic body wall edema. Mild thoracic sp ondylosis. No suspicious lytic or blastic bone lesions. ABDOMEN/PELVIS CT: Periportal edema throughout the liver. There are few small subtle poorly defined hypodense regions in the right hepatic lobe suspicious for metastatic disease. The gallbladder is decompressed with incre ased edematous-appearing wall thickening. Prominent fatty atrophy of the pancreas. Spleen and left ad renal gland are normal. Interval increase in thickening of the right adrenal gland which however cong ins significantly smaller than on CT dated 12/06/2019 which is suspicious for recurrent metastatic dis ease. The right kidney is small with effacement of the fat at the right renal sinus. Mild left hydrou reteronephrosis with the dilated ureter extending to the distalmost left ureter. There is asymmetric bladder wall thickening most prominent at the left side of the bladder consistent with given history of bladder carcinoma. Normal appendix. No bowel obstruction. Mild scattered colonic diverticulosis wi thout adjacent inflammatory change to suggest diverticulitis. There is mesenteric edema and small gisela unt of ascites scattered throughout the abdomen and pelvis most prominent about the liver. No abscess or free intraperitoneal gas. There is also extensive body wall edema. No pathologically enlarged abd ominal or pelvic lymphadenopathy. There is calcified atherosclerosis of the aorta and many of the [facility] er arteries. Chronic mixed lytic and sclerotic lesion anteriorly at the L2 vertebral body and right p ubic body which are both without significant interval change. Interval increase in size of a lytic ma ss extending along the left inferior pubic ramus which is increased in size from 5.8 x 1.7 x 2.7 cm t o currently measuring 6.1 x 3.1 x 2.3 cm. Moderate left-sided and severe right-sided hip osteoarthrit is. IMPRESSION: 1. Interval increase in size of lymph nodes at the high left jugular chain, left axilla and in the rodriguez bcarinal region as well as mild interval en
--- NOTE | ~2020-06-26 | CT_ITS ---
EXAMINATION: CT brain wo con EXAM DATE: 06/26/2020 15:45 INDICATION: Altered mental status, seizure. TECHNIQUE: Spiral CT of the head was performed without contrast. Axial, coronal and sagittal images were reviewed. The dose-length product (DLP) for this examination was 605.33 mGy-cm. The exposure w as tailored according to patient size, and iterative reconstruction (ASIR) was used as additional dos e reduction technique. Correlation is made to brain MRI 06/13/2019. FINDINGS: Small hyperdense region in the right frontal lobe medially, appearance is consistent with s mall acute intraparenchymal hematoma or hemorrhagic metastasis. This region measures about 1 cm and h as some associated vasogenic edema. There is also edema within the right brachium pontis, cerebellar white matter without underlying lesi on specifically identified, but this does increase the likelihood of metastatic disease. A contrast e nhanced brain MRI is indicated for further evaluation. Both of these findings are new compared to bra in MRI 2019. No extra-axial collections, obstructive hydrocephalus or other acute findings. Mild white matter hypo density, could be microangiopathy or vasogenic edema from brain metastases. Mild cerebral atrophy. IMPRESSION: 1. Small right frontal lobe hyperdense region suspicious for hemorrhagic metastasis or intraparenchy mal hematoma. 2. Right cerebellar edema without underlying lesion identified. Follow-up brain MRI examination with out and with contrast is recommended to evaluate possibility of metastatic disease. Reviewed, dictated and finalized at location A. IMPRESSION: 1. Small right frontal lobe hyperdense region suspicious for hemorrhagic metas tasis or intraparenchymal hematoma. 2. Right cerebellar edema without underlying lesion identified. Follow-up brai n MRI examination without and with contrast is recommended to evaluate possibil ity of metastatic disease.
--- NOTE | ~2020-06-26 | XR_ITS ---
EXAMINATION: XR chest ET placement EXAM DATE: 06/26/2020 15:35 INDICATION: Intubated. TECHNIQUE: Portable AP frontal chest x-ray was obtained. There is no prior study for comparison. FINDINGS: Endotracheal tube tip is 5 centimeters above the suhas (ideal range is between 2 to 5 cm). There is a right-sided portacatheter which has been accessed, CT injectable. Patient has external p acemaker pads in place. There is small amount of right infrahilar nonspecific airspace disease. No pneumothorax or pleural ef fusion suspected. Cardiomediastinal silhouette is normal. The bones and soft tissues are unremarka ble. IMPRESSION: 1. ET tube in adequate position. 2. Small amount of right infrahilar nonspecific airspace disease. Could be atelectasis, infection, aspiration. Reviewed, dictated and finalized at location A. IMPRESSION: 1. ET tube in adequate position. 2. Small amount of right infrahilar nonspecific airspace disease. Could be at electasis, infection, aspiration.
[2020-06-26] MEDS: SODIUM CHLORIDE 0.9% IV 1,000 ML 999 ML IV CONT (10:12)
[2020-06-26 10:14] LABS: Basophils Absolute Auto 0.01 K/mm3 (0.00-0.10); Basophils Percent Auto 0.1 % (0.0-1.0); Hematocrit 32.7 % (40.0-54.0); Immature Granulocyte Absolute 0.15 K/mm3 (0.00-0.00); Lymphocytes Absolute Auto 0.54 K/mm3 (1.10-4.50); Lymphocytes Percent Auto 3.6 % (18.0-42.0); Mean Corpuscular HGB Conc 33.6 g/dL (32.0-36.0); Mean Corpuscular Volume 83.2 fL (78.0-102.0); Mean Platelet Volume 10.4 fl (8.7-11.0); Monocytes Absolute Auto 0.38 K/mm3 (0.10-0.90); Monocytes Percent Auto 2.5 % (2.0-11.0); Neutrophils Absolute Auto 14.1 K/mm3 (1.7-7.2); Neutrophils Percent Auto 92.8 % (50.0-70.0); Platelet Count Result 134 K/mm3 (150-420); Red Blood Count 3.93 M/mm3 (4.70-6.10); Red Cell Distribution Width 15.3 % (11.6-14.4); White Blood Count 15.2 K/mm3 (4.8-10.8)
--- NOTE | 2020-06-26 10:25 | ED.RECABL ---
HPI - Recheck/Abnormal Lab/Rx General Chief Complaint: Recheck/Abnormal Lab/Rx Stated Complaint: 64YO Male w/ knwon h/o Metastatic bladder ca diagnosed aprox 3 years ago w/ mets to bone, brain and kidney sent into ER today by his oncologist (DR Aftab Barger) after an initial set of labs showed a markedly elevated high creatine level (>8.0), baseline <2 for patient. Patient has recently been receiving chemo for mets to brain. Related Data Home Medications Medication Instructions Recorded Confirmed morphine 30 mg PO BID 08/02/19 06/26/20 famotidine 20 mg PO DAILY 06/26/20 06/26/20 Allergies Allergy/AdvReac Type Severity Reaction Status Date / Time No Known Allergies Allergy Unverified 05/05/19 07:31 Review of Systems Review of Systems: All systems reviewed & are unremarkable except as noted in HPI and below Constitutional: Constitutional: Reports as per HPI and Reports weakness Eyes: Eyes: Reports as per HPI ENT: Reports system reviewed and no additional complaints, except as documented and Reports as per HPI Cardiovascular: Cardiovascular: Reports as per HPI and Reports no additional cardiovascular complaints Respiratory: Respiratory: Reports as per HPI and Reports no additional respiratory complaints Gastrointestinal: Gastrointestinal: Reports as per HPI and Reports no additional gastrointestinal complaints Genitourinary: Genitourinary: Reports no additional male genitourinary complaints and Reports as per HPI Musculoskeletal: Musculoskeletal: Reports no additional musculoskeletal complaints and Reports as per HPI Integumentary/Breasts: Skin/Breast: Reports system reviewed and no additional complaints, except as docu and Reports as per HPI Neurologic: Reports system reviewed and no additional complaints, except as documented and Reports as per HPI Psychiatric: Psychiatric: Reports no additional psychiatric complaints and Reports as per HPI Endocrine: Endocrine: Reports no additional endocrine complaints and Reports as per HPI Hematologic/Lymphatic: Hematologic/Lymphatic: Reports no additional hematologic/lymphatic complaints and Reports as per HPI Allergic/Immunologic: Allergic/Immunologic: Reports no additional allergic/immunologic complaints [facility] [place] Past Medical History Medical History (Updated 06/26/20 @ 15:51 by Austen Orozco MD) Bladder cancer metastasized to bone Bladder cancer metastasized to brain Social History Social History Smoking status: Former smoker Exam Const: General: no acute distress, alert and confusion Orientation/consciousness: patient oriented x3 HENMT: Head: normal to inspection Eyes: Conjunctivae: conjunctivae normal Pupils: Equal, round and reactive pupils present Neck: Neck: normal visual inspection Chest: Chest palpation & inspection: normal inspection of the chest Resp: Effort & Inspection: normal respiratory effort Auscultation: clear to auscultation bilaterally Cardio: Rate: regular rate Rhythm: regular rhythm GI: Auscultation: normal bowel sounds : Testes: Testes normal Skin: General skin exam: normal color Neuro: General: patient oriented x3, moves all extremities, no meningeal signs, no focal motor deficits and CN's II-XI intact bilaterally Speech: normal speech Extrem: General: normal to inspection Psych: Appearance: grossly normal Mental Status: mental status grossly normal Affect: normal affect Attitude: cooperative Course Course Emergency Course: D/W Dr Cotto (onc) who requests transfer to [facility] for Percutanuous Left Nephrostomy (IR guided), Hospitalist to admit and consult Onc and IR. Called [facility] who have no ICU or IMU beds for 2 days. They are on ER divert. Patient has an episode of seizure lasting approx 3 minutes which improved w/ Ativan 1mg IV. Patients GCS declined after seizure/post-ictal presumed. Patient went into a
[2020-06-26 10:31] LABS: Alanine Aminotransferase 137 U/L (16-63); Albumin Level 2.5 g/dL (3.4-5.0); Alkaline Phosphatase 158 U/L (46-116); Anion Gap 10 mmol/L (8-16); Aspartate Amino Transferase 46 U/L (15-37); Bilirubin,Total 0.6 mg/dL (0.00-1.00); Blood Urea Nitrogen 145 mg/dL (7-18); Carbon Dioxide 25 mmol/L (21-32); Chloride 87 mmol/L (98-108); Estimated Glomerular Filt Rate 6; Glucose 194 mg/dL (70-99); Lipase 31 U/L (73-393); Osmolality Calculated 306 mOsm/kg (285-295); Sodium 122 mmol/L (136-145); Total Protein 5.9 g/dL (6.4-8.2)
--- NOTE | 2020-06-26 10:33 | ECG_ITS ---
Measurements Intervals [place] Rate: 73 P: 75 OR: 179 QRS: 67 QRSD: 95 T: 55 QT: 345 QTc: 381 Interpretive Statements SINUS RHYTHM NORMAL ECG Electronically Signed On 06-26-2020 10:57:22 CDT by Jesse Beltran D.O.
[2020-06-26 10:34] LABS: Magnesium 2.4 mg/dL (1.8-2.4); Phosphorus 7.8 mg/dL (2.6-4.7); Potassium 7.2 mmol/L (3.5-5.1); Uric Acid 7.3 mg/dL (3.5-7.2)
--- NOTE | 2020-06-26 10:40 | PC.NURSE ---
PT CARE IS ASSUMED AT THIS TIME. CRITICAL VALUE POTASSIUM CALLED TO ERP. PT PLACED ON SENIOR QA ENGINEER. PT DENIES ANY C/O AT THIS TIME. CALCIUM IN 50 ML NS AND INFUSES OVER 10 MINUTES, KAYEXALATE GIVEN, 10 UNITS REGULAR INSULIN IN 250 ML D10 INFUSING AT 50 ML/HR - DISCUSSED THESE FINDINGS WITH PATIENT, STATES HE SEE DR HUERTA IN [place]. PT UPDATED ON POSSIBLE TRANSFER TO ANOTHER FACILITY, PT DECLINES AT THIS TIME.
[2020-06-26] MEDS: CALCIUM GLUCONATE 1,000 MG/10 ML VIAL 1000 MG IV PUSH (10:51)
[2020-06-26] MEDS: INSULIN HUMAN REGULAR (*BKC) 100 UNITS/ML 10 UNITS XX (10:51)
[2020-06-26] MEDS: SODIUM POLYSTYRENE SULFONONATE 15 GM/60 ML BTL PO (10:51)
[2020-06-26] MEDS: DEXTROSE 10% 250 ML 50 ML (10:52)
--- NOTE | 2020-06-26 11:38 | PC.NURSE ---
1035 REPORT TO DANDRE DONAHUE
[2020-06-26 11:39] LABS: Glucose Point of Care 169 (65-105)
[2020-06-26 13:02] LABS: Glucose Point of Care 142 (65-105)
[2020-06-26] MEDS: levoFLOXacin 500 MG/D5W 100 ML 500 MG/100 ML BAG 100 MG IVPB (13:17)
--- NOTE | 2020-06-26 13:25 | PC.NURSE ---
DR HUERTA CALLED FOR TRANSFER TO [facility] - PT AWARE AND AGREEABLE TO PLAN OF CARE. THIS RN ENTERED ROOM AFTER PATIENT TRYING TO STAND TO URINATE. PT FALLS DOWN ON BED WITH LEGS HANGING OFF, PT SHAKING BUT REMAINS ALERT X 3 STATES HE JUST GOT HOT. PT IS REPOSITIONED IN THE BED.
[2020-06-26 13:27] LABS: Add Urine Microscopic? NO; Appearance Urine Clear (Clear); Bilirubin Urine Negative (Negative); Blood Urine Negative (Negative); Color Urine Yellow (Yellow); Glucose Urine UA Negative (Negative); Ketones Urine Negative (Negative); Leukocyte Esterase Ur Negative LEU/UL (Negative); Nitrate Urine Negative (Negative); Protein Urine Negative (Negative); Urobilinogen Urine 0.2 mg/dL (0.2-1.0)
[2020-06-26 13:34] LABS: Prothrombin Time 10.6 Seconds (9.64-11.0)
[2020-06-26] MEDS: LORazepam INJ (*CRX) 2 MG/ML VIAL 1 MG IV PUSH (13:35)
--- NOTE | 2020-06-26 13:35 | PC.NURSE ---
RN CALLED INTO ROOM. PT IS FULL CLONIC-TONIC SEIZURE. NRB MASK APPLIED - SECOND RN ADMINISTERS 1 MG ATIVAN - PT COLOR TURNS DUSKY, DIAPHORETIC PT NOT RESPONDING TO PAINFUL STIMULI - MONITOR THEN SHOWS VT WITH A FAINT PULSE - 10 COMPRESSIONS GIVEN - PT RETURNS TO SPONTANEOUS RESPIRATIONS WITH A ST ON THE MONITOR. CRASH CART TO BEDSIDE, HANDS FREE PADS APPLIED - PT IN POST-ICTAL STATE FOLLOWING 2 MINUTE SEIZURE
--- NOTE | 2020-06-26 14:01 | PC.NURSE ---
SPOKE WITH IN DEPTH CONCERNING METASTATIC DIAGNOSIS - SHE STATES PT WAS GIVEN ANTI-SEIZURE MEDICINE IN THE PAST WITH BRAIN CA BUT WAS TAKEN OFF BECAUSE HE DIDN'T NEED IT. GAVE EDUCATION CONCERNING THIS METASTATIC DISEASE. PT STATES SHE HASN'T TOLD HER ALL OF THE DETAILS TO NOT HURT HIM ANYMORE.
[2020-06-26 14:19] LABS: Anion Gap 16 mmol/L (8-16); Blood Urea Nitrogen 146 mg/dL (7-18); Calcium 8.8 mg/dL (8.5-10.1); Carbon Dioxide 18 mmol/L (21-32); Chloride 90 mmol/L (98-108); Estimated CRCL calculation 7 ml/min; Estimated Glomerular Filt Rate 7; Glucose 103 mg/dL (70-99); Osmolality Calculated 305 mOsm/kg (285-295); Sodium 124 mmol/L (136-145)
[2020-06-26] MEDS: ALBUTEROL SULFATE NEB 2.5 MG/3 ML INH 10 MG INHALATION (14:44)
[2020-06-26] MEDS: FUROSEMIDE INJ 100 MG/10 ML VIAL 80 MG IV PUSH (14:46)
[2020-06-26 14:49] LABS: HCO3 VBG 20.5 mEq/l (24.0-30.0); PCO2 VBG 43.9 mmHg (42.0-48.0); PO2 VBG 77.5 mmHg (35.0-45.0); pH VBG 7.29 (7.33-7.43)
[2020-06-26 14:52] LABS: Device NON-REBREATHER MASK
--- NOTE | 2020-06-26 15:06 | PC.NURSE ---
SHALLOW RESPIRATIONS NOTED - UPDATED REPORT GIVEN TO [facility] PER NEED FOR ICU BED MALATHI. ERP SPOKE WITH TESTING AND REGULATING TECHNICIAN AND HAVE DECIDED TO INTUBATE PATIENT TO PREPARE FOR TRANSPORT
--- NOTE | 2020-06-26 15:28 | PC.NURSE ---
PT IS INTUBATED WITH 7.[address] [facility] PT TOLERATES PROCEDURE WELL - 22 CM AT THE LIP - 100 MG SUCCINYLCHOLINE AND 40 MG ETOMIDATE GIVEN PRIOR TO PROCEDURE
--- NOTE | 2020-06-26 15:50 | PC.NURSE ---
TV 500 - FIO2 100% - RATE 14 - PEEP 5 VENTILATOR SETTINGS
[2020-06-26 16:06] LABS: Base Excess ABG -3.1 mmol/L (0-2); HCO3 ABG 22.1 mmol/L (23-29); Oxygen Content ABG 16.6 %vol (16.0-22.0); Oxygen Saturation ABG 99.9 % (95-97); Oxyhemoglobin 98.2 % (94-100); PCO2 ABG 39.9 mmHg (35-45); PO2 ABG 300.1 mmHg (80-90); Total Hemoglobin 11.5 g/dL; pH ABG 7.36 (7.35-7.45)
[2020-06-26 16:12] LABS: Device VENTILATOR; Modified Allen's Test Unable to perform
[2020-06-26 16:13] LABS: Site Drawn LEFT BRACHIAL
[2020-06-26 16:14] LABS: Arterial Blood Gas PEEP 5 cmH2O; Arterial Blood Gas Ventilator rate 14 /MIN
[2020-06-26 16:15] LABS: Arterial Blood Gas Tidal Volume 500 ml
--- NOTE | 2020-06-26 16:15 | PC.NURSE ---
FIO2 TITRATED DOWN TO 30%
[2020-06-26 16:22] LABS: Anion Gap 11 mmol/L (8-16); Blood Urea Nitrogen 141 mg/dL (7-18); Calcium 8.8 mg/dL (8.5-10.1); Carbon Dioxide 23 mmol/L (21-32); Chloride 90 mmol/L (98-108); Estimated CRCL calculation 8 ml/min; Estimated Glomerular Filt Rate 7; Glucose 77 mg/dL (70-99); Osmolality Calculated 302 mOsm/kg (285-295); Sodium 124 mmol/L (136-145)
[2020-06-26] MEDS: ETOMIDATE 20 MG/10 ML AMPUL (17:00)
== END 2020-06-26 16:45 | disposition short-term general hospital (02) ==
PROVIDERS: Emergency Provider Family Medicine; PCP Internal Medicine
DX: C67.9 Malignant neoplasm of bladder, unspecified (principal); C79.51 Secondary malignant neoplasm of bone; C79.31 Secondary malignant neoplasm of brain; N17.9 Acute kidney failure, unspecified; E87.5 Hyperkalemia; E83.39 Other disorders of phosphorus metabolism; J18.9 Pneumonia, unspecified organism; R41.82 Altered mental status, unspecified; R56.9 Unspecified convulsions; N13.5 Crossing vessel and stricture of ureter without hydronephrosis; Z87.891 Personal history of nicotine dependence
CPT/HCPCS: 31500; 36415; 36600; 70450; 70490; 71250; 74176; 80048; 80053; 81003; 82803; 82805; 83690; 83735; 84100; 84550; 85025; 85610; 93005; 94640; 96361; 96365; 96366; 96368; 96375; 99283; 99285; A9270; J0330; J0610; J1815; J1940; J1956; J2060; J7030

== ENCOUNTER 2020-07-12 19:06 | Inpatient (IN) | payer OTHER, SELFPAY ==
--- NOTE | ~2020-07-12 | XR_ITS ---
EXAMINATION: XR chest 1V portable INDICATION: Hypoxia and shortness of breath TECHNIQUE: Portable AP chest at 0836 hours COMPARISON: 06/26/2020 FINDINGS: There are minimal persistent airspace opacities in the right lung base. No pleural effusion or pneumothorax is identified. The cardiomediastinal silhouette is normal. A right internal jugular Port-A-Cath ends with its tip in the distal superior vena cava. There is a partially imaged IVC filte r. Partially imaged catheters are also noted in the upper abdomen. IMPRESSION: 1. Stable right basilar airspace opacity, consistent with atelectasis versus pneumonia. Reviewed, dictated and finalized at location A. UNICATIONS AND SIGNALS SUPERVISOR IMPRESSION: 1. Stable right basilar airspace opacity, consistent with atelectasis versus pn eumonia.
[2020-07-12 20:00] VITALS: BP 97/63; PULSE 120; RESP 22; TEMP 36.9; O2SAT 90
[2020-07-12 20:10] VITALS: BMI 18.9
--- NOTE | 2020-07-12 21:07 | ADMGEN ---
This patient, He Swenson, was admitted to 2nd Floor Room 204-2. Patient/family oriented to hospital policies and general routines including ID bracelet, bed and alarms, visiting hours, pain management, procedures, bathroom and other care routines, personal items, smoking policy, room service/diet, and visiting hours. Information on how to activate the Rapid Response Team has been discussed. Patient/Family are encouraged to report perceived risks to care and to ask questions if they do not understand what they are told or what they should do.
[2020-07-12] MEDS: PHENYTOIN SODIUM 100 MG CAP 300 MG PO (21:16)
[2020-07-12] MEDS: MELATONIN 5 MG TABLET PO (21:17)
[2020-07-12] MEDS: ACETAMINOPHEN 500 MG TABLET PO (21:17)
--- NOTE | 2020-07-12 21:20 | PM.IMHP ---
H&P: HPI History of Present Illness Date/Time: 07/12/20 21:20 Chief complaint: REHAB Narrative: He Swenson is a 64 year old male With a history of bladder cancer with metastases to the brain, around June 26, 2020 was seen in [facility] emergency department because he had lab work drawn which showed that he had a creatinine of greater than 8 with a potassium level of 7.2 and was notified by his oncologist to present himself to the emergency department. While in the emergency department the patient developed a seizure had a CT scan which showed intraparenchymal hemorrhage the patient was intubated and was transferred to [facility] ICU. Patient sees Dr. HUERTA, oncologist and has had whole brain radiation and has received a chemotherapy. Patient also has a history of liver metastases. Patient had the history of acute renal failure with elevated creatinine with a left obstructive uropathy. Patient subsequently transferred to [place] in hospital for rehab for weakness and strengthening activities. Patient currently on phenytoin for seizure prevention, and morphine for pain control. PT and OT ordered for evaluation and treatment. And according to patient and his once he receives physical therapy and increases his strength he will follow with his oncologist at [facility]. Currently the patient is comfortable voices no concerns, there is no shortness of breath is no fever chills currently no abdominal pain, the patient does have a history of chronic back pain which is covered with morphine. No chest pain no fever chills no nausea vomiting. Review of Systems Review of Systems: All systems reviewed & are unremarkable except as noted in HPI and below PMFSH Past Medical History Medical History Bladder cancer metastasized to bone Bladder cancer metastasized to brain Social History Social History Smoking status: Former smoker Second hand tobacco smoke exposure: Yes Alcohol intake: never Substance use: current Substance use type: marijuana Last use: 06/18/2020 Spiritual care concerns: No Meds Home Medications and Allergies Home Medications Medication Instructions Recorded Confirmed Type morphine 30 mg PO BID 08/02/19 07/12/20 History famotidine 20 mg PO DAILY 06/26/20 07/12/20 History acetaminophen [Acetaminophen Extra 500 mg PO Q6H PRN 07/12/20 07/12/20 History Strength] hyoscyamine sulfate 0.125 mg PO Q4H PRN 07/12/20 07/12/20 History melatonin 5 mg PO HS PRN 07/12/20 07/12/20 History phenytoin sodium extended 300 mg PO HS 07/12/20 07/12/20 History sennosides-docusate sodium [Senna 1 tab-cap PO HS PRN 07/12/20 07/12/20 History with Docusate Sodium] tamsulosin 0.4 mg PO DAILY 07/12/20 07/12/20 History Allergies Allergy/AdvReac Type Severity Reaction Status Date / Time enoxaparin [From Lovenox] Allergy Unknown Verified 07/12/20 20:19 labetalol Allergy Unknown Verified 07/12/20 20:17 warfarin [From Coumadin] Allergy Unknown Verified 07/12/20 20:19 Vital Signs Vital Signs - 24 hr 07/12/20 20:00 Temperature 36.9 C Pulse Rate 120 H Respiratory Rate 22 H Blood Pressure 97/63 L Pulse Oximetry 90 Exam Narrative: Exam Narrative: See HPI Const: General: cooperative, comfortable and no acute distress HENMT: Head: normal to inspection Eyes: General: appearance normal, both eyes and all related structures Eyelids: eyelids normal Conjunctivae: conjunctivae normal Sclera: sclerae normal Pupils: Equal, round and reactive pupils present Neck: Neck: normal visual inspection, full ROM and no meningeal signs Resp: Effort & Inspection: normal respiratory effort and able to speak in complete sentences Auscultation: clear to auscultation bilaterally Cardio: Jugular venous distension: no JVD Palpation: normal PMI Rate: regular rate Heart sounds: S1 normal heart
--- NOTE | 2020-07-12 23:50 | PC.NURSE ---
SPO2 found to be 84% on 2 liters O2 per nasal cannula. Patient was instructed to cough and deep breath and oxygen was increased in increments of one liter until SPO2 was above 90%. At 6 liters patient saturation was 90 to 91%. Patient denies feeling short of breath. Charge nurse notified.
[2020-07-13] VITALS: BP 102/66; PULSE 107; RESP 18; TEMP 36.9; O2SAT 91
--- NOTE | 2020-07-13 00:14 | PC.NURSE ---
Dr. Pandey notified of pt's SAO2 being 91% on 6 liters per nasal cannula; No new orders at this time.
[2020-07-13] MEDS: HYDROcodone/acetaminophen (*CRX) 5-325 MG TABLET 1 TAB PO ×2 (05:35→12:18)
[2020-07-13 07:25] VITALS: BP 109/68; PULSE 104; RESP 20; TEMP 37.5; O2SAT 94
--- NOTE | 2020-07-13 08:12 | PM.IMPN ---
Progress Note: A&P Assessment and Plan (1) Bladder cancer metastasized to brain: Code(s): C67.9 - Malignant neoplasm of bladder, unspecified; C79.31 - Secondary malignant neoplasm of brain Status: Acute Assessment and Plan: 07/13/2020 patient is here for physical therapy to increase strength and conditioning so that he can follow-up with his oncologist and resume chemotherapy (2) Bladder cancer metastasized to liver: Code(s): C67.9 - Malignant neoplasm of bladder, unspecified; C78.7 - Secondary malignant neoplasm of liver and intrahepatic bile duct Status: Acute Assessment and Plan: 07/13/2020 same plan as above (3) Generalized muscle weakness: Code(s): M62.81 - Muscle weakness (generalized) Status: Acute Assessment and Plan: 07/13/2020 patient is to participate with PT/OT for reconditioning so that he may be able to perform ADLs, follow-up with his oncologist and continue chemotherapy, patient has a good appetite finishing all of his breakfast and lunch Subjective Date/time seen: 07/13/20 08:12 patient states that he is feeling good today he has no complaints of shortness of breath increased work of breathing no chest pain. Just states he feels a little weak. Review of Systems Review of Systems: All systems reviewed & are unremarkable except as noted in HPI and below Constitutional: Constitutional: Reports no additional constitutional complaints, Denies chills, Denies fatigue, Denies headache(s) and Denies malaise Cardiovascular: Cardiovascular: Reports no additional cardiovascular complaints, Denies chest pain, Denies chest pain at rest and Denies chest pain with activity Respiratory: Respiratory: Reports no additional respiratory complaints, Denies cough, Denies dyspnea and Denies dyspnea on exertion Gastrointestinal: Gastrointestinal: Reports no additional gastrointestinal complaints, Denies abdominal pain, Denies belching, Denies change in stool character and Denies constipation Genitourinary: Genitourinary: Reports no additional male genitourinary complaints Musculoskeletal: Musculoskeletal: Reports muscle weakness (feels a little weak) Neurologic: Reports system reviewed and no additional complaints, except as documented Psychiatric: Psychiatric: Reports no additional psychiatric complaints Exam Const: General: cooperative, comfortable and no acute distress Nutritional Appearance: thin Resp: Effort & Inspection: normal respiratory effort Auscultation: clear to auscultation bilaterally Other: 5 L nasal cannula Cardio: Rate: regular rate Rhythm: regular rhythm Heart sounds: S1 normal heart sound present and S2 normal heart sound present GI: GI Palp: Yes Soft to palpation Auscultation: normal bowel sounds Neuro: General: oriented to person, oriented to place and oriented to time Cranial nerves: Yes CN's II-XII intact bilaterally (grossly intact) Cognition (Neuro): normal cognition Speech: normal speech Extrem: General: no pedal edema Objective Data Vital Signs Vital Signs: Vital Signs - 24 hr 07/12/20 20:00 07/13/20 00:00 07/13/20 07:25 Temperature 98.5 F 98.5 F 99.5 F Pulse Rate 120 H 107 H 104 H Respiratory Rate 22 H 18 20 Blood Pressure 97/63 L 102/66 109/68 Pulse Oximetry 90 91 94 Intake/Output Intake/Output: Intake & Output 07/10/20 07/11/20 07/12/20 07/13/20 23:59 23:59 23:59 23:59 Intake Total 100 Output Total 775 Balance -675 Meds/Results Medications: Active Medications Generic Name Dose Route Start Last Admin Trade Name Freq PRN Reason Stop Dose Admin Acetaminophen 500 mg 07/12/20 20:06 07/12/20 21:17 Acetaminophen 500 Mg Tablet PO 500 mg Q6H PRN Administration Fever Or Pain Hydrocodone Bitart/Acetaminophen 1 tab 07/12/20 20:25 07/13/20 05:35 Hydrocodone/Acetaminophen (*Crx) 5-325 Mg Tablet PO 1 tab Q6H PRN Administration Pain Rated 4-6 Famotidine 20 mg 07/13/20 09:0
[2020-07-13 08:42] LABS: Hematocrit 26.3 % (40.0-54.0); Hemoglobin 8.8 g/dL (14.0-18.0); Mean Corpuscular HGB Conc 33.5 g/dL (32.0-36.0); Mean Corpuscular Hemoglobin 28.2 pg (27.0-31.0); Mean Corpuscular Volume 84.3 fL (78.0-102.0); Mean Platelet Volume 11.3 fl (8.7-11.0); Platelet Count Result 103 K/mm3 (150-420); Red Blood Count 3.12 M/mm3 (4.70-6.10); Red Cell Distribution Width 18.6 % (11.6-14.4); White Blood Count 9.3 K/mm3 (4.8-10.8)
[2020-07-13 09:00] LABS: Alanine Aminotransferase 68 U/L (16-63); Albumin Level 1.4 g/dL (3.4-5.0); Alkaline Phosphatase 565 U/L (46-116); Anion Gap 10 mmol/L (8-16); Aspartate Amino Transferase 68 U/L (15-37); Bilirubin,Total 1.1 mg/dL (0.00-1.00); Blood Urea Nitrogen 21 mg/dL (7-18); Calcium 8.9 mg/dL (8.5-10.1); Carbon Dioxide 24 mmol/L (21-32); Chloride 98 mmol/L (98-108); Estimated CRCL calculation 51 ml/min; Estimated Glomerular Filt Rate > 60; Glucose 109 mg/dL (70-99); Osmolality Calculated 278 mOsm/kg (285-295); Potassium 4.3 mmol/L (3.5-5.1); Sodium 132 mmol/L (136-145); Total Protein 4.6 g/dL (6.4-8.2)
[2020-07-13 09:06] LABS: Band Neutrophils Percent 1 % (0-6); Basophils Percent Manual 0 % (0-1); Eosinophils Percent Manual 0 % (1-6); Lymphocytes Absolute Manual 0.83 K/mm3 (1.1-4.5); Lymphocytes Percent Manual 9 % (18-44); Metamyelocytes Percent 1 %; Monocytes Absolute Manual 0.74 K/mm3 (0.1-0.90); Monocytes Percent Manual 8 % (3-9); Myelocytes Percent 3 %; Neutrophils Absolute Manual 7.34 K/mm3 (1.3-6.7); Neutrophils Percent Manual 78 % (46-73); Platelet Estimate Adequate (Adequate); Total Cells Counted 100
[2020-07-13] MEDS: FAMOTIDINE 20 MG TABLET PO (09:09)
[2020-07-13] MEDS: TAMSULOSIN HCL 0.4 MG CAPSULE PO (09:09)
--- NOTE | 2020-07-13 13:26 | PHAR ---
07/13/20 - PHENYTOIN 100MG CAPS ENTERED ON PATIENT IN [facility] ARE CORRECT AND ARE ER FORM. NOTIFIED NURSE KIMMIE. ROSALES
--- NOTE | 2020-07-13 13:33 | PC.NURSE ---
Completed therapy for the day, up in chair at this time
--- NOTE | 2020-07-13 14:34 | PC.NURSE ---
Remains in chair at this time,
[2020-07-13 15:30] VITALS: BP 108/70; PULSE 109; RESP 20; TEMP 37.1; O2SAT 90
--- NOTE | 2020-07-13 18:14 | PC.NURSE ---
In chair at this time, at the bedside, denies needs, oxygen on at 4L no distress noted
--- NOTE | 2020-07-13 18:24 | PM.EVENT ---
Event Note Event Note Event Note: I have examined the patient and reviewed the chart. I discussed the patient's care with Fay Pascal APN and agree with his assessment and plan.
[2020-07-13] MEDS: PHENYTOIN SODIUM 100 MG CAP 300 MG PO (20:01)
[2020-07-13] MEDS: MELATONIN 5 MG TABLET PO (20:02)
[2020-07-13] MEDS: ACETAMINOPHEN 500 MG TABLET PO (20:02)
[2020-07-14] VITALS: BP 100/67; PULSE 110; RESP 20; TEMP 36.6; O2SAT 92
[2020-07-14 05:54] LABS: Hematocrit 27.8 % (40.0-54.0); Hemoglobin 9.1 g/dL (14.0-18.0)
[2020-07-14 08:00] VITALS: BP 99/64; PULSE 120; RESP 22; TEMP 36.8; O2SAT 88
[2020-07-14] MEDS: TAMSULOSIN HCL 0.4 MG CAPSULE PO (08:45)
[2020-07-14] MEDS: ACETAMINOPHEN 500 MG TABLET PO (08:45)
[2020-07-14] MEDS: FAMOTIDINE 20 MG TABLET PO (08:46)
--- NOTE | 2020-07-14 08:54 | PM.EVENT ---
Event Note Event Note Event Note: 07/14/2020 H/H is 9.1/27.8 this is an increase from yesterday 8.8/26.3.
[2020-07-14 12:00] LABS: Glucose Point of Care 122 (65-105)
[2020-07-14 16:00] VITALS: BP 97/64; PULSE 109; RESP 20; TEMP 36.6
[2020-07-14 20:30] VITALS: PULSE 110; RESP 24; O2SAT 90
[2020-07-14] MEDS: HYDROcodone/acetaminophen (*CRX) 5-325 MG TABLET 1 TAB PO (20:32)
[2020-07-14] MEDS: MELATONIN 5 MG TABLET PO (20:33)
[2020-07-14] MEDS: PHENYTOIN SODIUM 100 MG CAP 300 MG PO (20:33)
[2020-07-15] VITALS: BP 95/60; PULSE 104; RESP 20; TEMP 37.5; O2SAT 90
[2020-07-15 06:04] LABS: Hematocrit 24.8 % (40.0-54.0); Hemoglobin 8.1 g/dL (14.0-18.0)
[2020-07-15 08:00] VITALS: BP 90/58; PULSE 122; RESP 24; TEMP 37.2; O2SAT 89
[2020-07-15 08:43] LABS: Immature Platelet Fraction Pct 7.7 % (1.0-7.0); Mean Corpuscular HGB Conc 32.5 g/dL (32.0-36.0); Mean Corpuscular Hemoglobin 27.9 pg (27.0-31.0); Mean Corpuscular Volume 85.9 fL (78.0-102.0); Platelet Count Result 105 K/mm3 (150-420); Red Cell Distribution Width 19.2 % (11.6-14.4); White Blood Count 12.8 K/mm3 (4.8-10.8)
[2020-07-15 08:51] LABS: Alanine Aminotransferase 73 U/L (16-63); Albumin Level 1.3 g/dL (3.4-5.0); Alkaline Phosphatase 605 U/L (46-116); Anion Gap 10 mmol/L (8-16); Aspartate Amino Transferase 81 U/L (15-37); Blood Urea Nitrogen 30 mg/dL (7-18); Calcium 9.1 mg/dL (8.5-10.1); Carbon Dioxide 25 mmol/L (21-32); Chloride 100 mmol/L (98-108); Estimated CRCL calculation 44 ml/min; Estimated Glomerular Filt Rate 59; Glucose 120 mg/dL (70-99); Osmolality Calculated 287 mOsm/kg (285-295); Potassium 4.3 mmol/L (3.5-5.1); Sodium 135 mmol/L (136-145); Total Protein 4.6 g/dL (6.4-8.2)
[2020-07-15 09:01] LABS: Band Neutrophils Percent 6 % (0-6); Basophils Percent Manual 0 % (0-1); Eosinophils Percent Manual 0 % (1-6); Lymphocytes Absolute Manual 2.04 K/mm3 (1.1-4.5); Lymphocytes Percent Manual 16 % (18-44); Monocytes Absolute Manual 0.76 K/mm3 (0.1-0.90); Monocytes Percent Manual 6 % (3-9); Neutrophils Absolute Manual 9.98 K/mm3 (1.3-6.7); Neutrophils Percent Manual 72 % (46-73); Platelet Estimate Decreased (Adequate); Total Cells Counted 100
[2020-07-15] MEDS: ACETAMINOPHEN 500 MG TABLET PO (09:44)
[2020-07-15] MEDS: FAMOTIDINE 20 MG TABLET PO (09:44)
[2020-07-15] MEDS: TAMSULOSIN HCL 0.4 MG CAPSULE PO (09:44)
--- NOTE | 2020-07-15 09:48 | PC.NURSE ---
500ml bolus [id number]
[2020-07-15] MEDS: SODIUM CHLORIDE 0.9% IV 500 ML IV CONT (10:06)
--- NOTE | 2020-07-15 10:07 | PC.NURSE ---
Patient spo2 70-80s this am. O2 increased to 7Liters spo2 88%-89%. Simple mask applied at 7Liters sp02 95%, decreased to 5 Liters 94%. Decreased to 4 Liters 93%
--- NOTE | 2020-07-15 11:02 | PM.IMPN ---
Progress Note: A&P Assessment and Plan (1) Bladder cancer metastasized to brain: Code(s): C67.9 - Malignant neoplasm of bladder, unspecified; C79.31 - Secondary malignant neoplasm of brain Status: Acute Assessment and Plan: 07/13/2020 patient is here for physical therapy to increase strength and conditioning so that he can follow-up with his oncologist and resume chemotherapy 07/15/2020 continue with above plan so patient can return to his chemotherapy treatment (2) Bladder cancer metastasized to liver: Code(s): C67.9 - Malignant neoplasm of bladder, unspecified; C78.7 - Secondary malignant neoplasm of liver and intrahepatic bile duct Status: Acute Assessment and Plan: 07/13/2020 same plan as above (3) Generalized muscle weakness: Code(s): M62.81 - Muscle weakness (generalized) Status: Acute Assessment and Plan: 07/13/2020 patient is to participate with PT/OT for reconditioning so that he may be able to perform ADLs, follow-up with his oncologist and continue chemotherapy, patient has a good appetite finishing all of his breakfast and lunch 07/15/2020 today patient is with physical therapy doing bedside activities, will be keeping close eye on his respiratory status (4) Shortness of breath on exertion: Code(s): R06.02 - Shortness of breath Status: Acute Assessment and Plan: 07/15/2020 patient has shortness of breath this morning after being transferred from bed to chair, this has resolved, obtained chest image radiology report indicated atelectasis versus pneumonia, gave patient Acapella and Levaquin, patient has a simple mask at 4.5 L with SpO2 90-92%. Subjective Date/time seen: 07/15/20 11:02 Was called to the bedside this morning by nursing staff because patient had a very low SpO2 in the 70s. Patient had just gotten transferred from the bed to chair. Oxygen was turned up from 5 to 7 L/min. And SpO2 increased into the upper 80s. Patient is a mouth breather so a simple mask was then placed and supplemental oxygen was weaned down to 4.5 L/min with a SpO2 that fluctuates between 88-92%. At this point patient was not complaining of any shortness of breath. Spoke with who had taken extensive notes while patient was at the previous facility. She confirms that patient did have DVT and later was found to have PE. On 2 different occasions blood thinners were used however due to patient's bladder cancer he ended having gross hematuria and his platelets were below 100 which contraindicated the use of anticoagulation. About patient's platelets are slightly better than 100,000. states that at night patient agrees with through his mouth and is wondering about a sleep study which could be done on outpatient basis. Discussed with patient's decreased appetite. informed me that patient does have a medical marijuana card and we discussed edibles for the patient to take. Will discuss this with pharmacy tomorrow and with the rounding physician as well. Review of Systems Review of Systems: Narrative: Review of systems was obtained after resolution of the shortness of breath and low SpO2 this morning. Constitutional: Constitutional: Denies body ache(s), Denies chills and Reports poor appetite Cardiovascular: Cardiovascular: Denies chest pain, Denies chest pain at rest and Denies chest pain with activity Respiratory: Respiratory: Denies chest congestion and Denies cough Comments: Shortness of breath resolved at this time per the patient Gastrointestinal: Gastrointestinal: Reports no additional gastrointestinal complaints Genitourinary: Genitourinary: Reports no additional male genitourinary complaints Musculoskeletal: Musculoskeletal: Reports muscle weakness Neurologic: Comments: patient had a little dizziness during his shortness of breath episode patient states this is better now Exam Const: General: cooperative, no acute distress, alert and awake
[2020-07-15 11:53] LABS: Phenytoin Dilantin 5 ug/mL (10-20)
[2020-07-15 12:40] LABS: Add Urine Microscopic? YES; Appearance Urine Sl Cloudy (Clear); Bilirubin Urine 1+ (Negative); Blood Urine 3+ (Negative); Color Urine Amber (Yellow); Glucose Urine UA Negative (Negative); Ketones Urine Negative (Negative); Leukocyte Esterase Ur Trace LEU/UL (Negative); Nitrate Urine Negative (Negative); Protein Urine 1+ (Negative); Urobilinogen Urine 0.2 mg/dL (0.2-1.0); pH Urine 6.5 (5.0-8.0)
[2020-07-15 12:45] LABS: Bacteria Urine Trace /hpf; RBC Urine 51-75 /hpf (0-2); Squamous Epithelial Cell Urine Occasional /hpf (Few); WBC Urine 0-3 /hpf (0-3)
--- NOTE | 2020-07-15 14:37 | PM.DS ---
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: Code(s): C67.9 - Malignant neoplasm of bladder, unspecified; C78.7 - Secondary malignant neoplasm of liver and intrahepatic bile duct Status: Acute Assessment and Plan: 07/13/2020 same plan as above (3) Generalized muscle weakness: Code(s): M62.81 - Muscle weakness (generalized) Status: Acute Assessment and Plan: 07/13/2020 patient is to participate with PT/OT for reconditioning so that he may be able to perform ADLs, follow-up with his oncologist and continue chemotherapy, patient has a good appetite finishing all of his breakfast and lunch 07/15/2020 today patient is with physical therapy doing bedside activities, will be keeping close eye on his respiratory status (4) Shortness of breath on exertion: Code(s): R06.02 - Shortness of breath Status: Acute Assessment and Plan: 07/15/2020 patient has shortness of breath this morning after being transferred from bed to chair, this has resolved, obtained chest image radiology report indicated atelectasis versus pneumonia, gave patient Acapella and Levaquin, patient has a simple mask at 4.5 L with SpO2 90-92%. 1450 hours patient's oxygen demand requires him to be on a simple mask on 5-6 liters/minute in order to maintain saturation of 88 to 92%. Unfortunately he is not improving and will be transferring him to a acute facility for his hypoxemia. At this time [facility] has accepted him however they have a 2-3 day weight as their facility is full. The patient the ER doctor and myself believe he needs attention sooner than later therefore family has agreed to [facility]. DS: Summary Time Spent with Patient Time attestation: Total time spent providing and/or coordinating discharge services: < 30 minutes Exam Const: General: cooperative, comfortable, no acute distress, alert and awake Nutritional Appearance: thin Orientation/consciousness: oriented to person, oriented to place and oriented to time Resp: Effort & Inspection: normal respiratory effort (at this time, Oxygen saturation is low) Auscultation: clear to auscultation bilaterally Other: radiology report for chest x-ray atelectasis versus pneumonia Cardio: Rate: regular rate Rhythm: regular rhythm Heart sounds: S1 normal heart sound present and S2 normal heart sound present GI: Auscultation: normal bowel sounds and Hypoactive bowel sounds present : Other: urine is light yellow no appearance of blood Neuro: General: oriented to person, oriented to place and oriented to time Cranial nerves: Yes CN's II-XII intact bilaterally ( grossly intact) Cognition (Neuro): normal cognition Speech: Other speech findings present (Neuro) (slow speech patient tired in appearance) Extrem: General: no pedal edema DS: Data Data Completed and Pending Labs on day of discharge: Labs from last 24 hours 07/15/20 07/15/20 07/15/20 12:33 11:15 05:41 WBC RBC Hgb Hct MCV MCH MCHC RDW Plt Count MPV Immature Gran % (Auto) Neut % (Auto) Lymph % (Auto) [place] % (Auto) Eos % (Auto) Baso % (Auto) Lymph # (Auto) [place] # (Auto) Eos # (Auto) Baso # (Auto) Abs Immat Gran (auto) Absolute Neuts (auto) Absolute Nucleated RBC Total Counted Neutrophils % (Manual) Band Neutrophils %
--- NOTE | 2020-07-15 15:29 | PC.NURSE ---
Moved patient to room 210. R/O shirleyid.
== END 2020-07-15 14:51 | disposition critical access hospital (66) | DRG 555 ==
PROVIDERS: Nurse Practitioner Family; Admitting Provider Emergency Medicine; PCP Internal Medicine; Visit Provider Emergency Medicine
DX: M62.81 Muscle weakness (generalized) (principal); I26.99 Other pulmonary embolism without acute cor pulmonale; C78.7 Secondary malignant neoplasm of liver and intrahepatic bile duct; C79.31 Secondary malignant neoplasm of brain; C79.51 Secondary malignant neoplasm of bone; C67.9 Malignant neoplasm of bladder, unspecified; R06.02 Shortness of breath; R09.02 Hypoxemia
CPT/HCPCS: 36415; 71045; 80053; 80185; 81001; 85014; 85018; 85025; 85055; 87040; 94667; 97110; 97161; 97165; 97530; A9270; J7040

== ENCOUNTER 2020-07-15 14:51 | Inpatient (IN) | payer OTHER, SELFPAY ==
[2020-07-15] VITALS (7 sets, daily range): BP systolic 101–106; BP diastolic 71; PULSE 102–114; RESP 20–26; TEMP 36.3–36.6; O2SAT 79–92
--- NOTE | ~2020-07-15 | CT_ITS ---
EXAMINATION: CT chest w con EXAM DATE: 07/16/2020 11:10 INDICATION: Hypoxia, severe dyspnea. Bladder cancer metastatic disease. TECHNIQUE: Spiral CT of the chest following intravenous injection of 75 mL Omnipaque 350. Axial, cor onal and sagittal images were reviewed. Coronal maximum intensity pixel images of chest reviewed. T he dose-length product (DLP) for this examination was 132.08 mGy-cm. The exposure was tailored accor ding to patient size (auto mA exposure control), and iterative reconstruction (ASIR) was used as gita tional dose reduction technique. Comparison is made to prior examination from 12/06/2019. FINDINGS: No central pulmonary emboli. There is a right-sided Chemo-Port. Small left pleural effusio n. Diffuse scattered punctate tree-in-bud pattern opacities which are new compared to November, most lik indicating endobronchial spread of infection. Differential diagnosis includes TB/DANIEL and chronic air space processes such as hypersensitivity pneumonitis. Tracheobronchial tree is patent. Previously seen precarinal lymphadenopathy has resolved. There has been interval development of subca rinal soft tissue which could be lymphadenopathy measuring 2.4 x 1.2 cm.There is mild emphysema. Ther e is no pneumothorax. Heart normal in size. There is mild coronary arterial calcification, arteri al sclerosis. Metallic density at the luis alberto, could be a biliary stent. There is mild thoracic spond ylosis without osteoblastic or osteolytic lesions identified. IMPRESSION: 1. Development of punctate scattered tree-in-bud opacities most likely infectious process, or hypers ensitivity pneumonitis. 2. Development of subcarinal lymphadenopathy. Resolution of precarinal lymphadenopathy. 3. Development of small left pleural effusion. 4. Mild emphysema. Reviewed, dictated and finalized at location B. TERM ACUTE CARE REGISTERED NURSE IMPRESSION: 1. Development of punctate scattered tree-in-bud opacities most likely infecti ous process, or hypersensitivity pneumonitis. 2. Development of subcarinal lymphadenopathy. Resolution of precarinal lymphad enopathy. 3. Development of small left pleural effusion. 4. Mild emphysema.
--- NOTE | 2020-07-15 15:42 | ECG_ITS ---
Measurements Intervals [place] Rate: 103 P: 69 SC: 158 QRS: 77 QRSD: 86 T: 83 QT: 319 QTc: 419 Interpretive Statements SINUS TACHYCARDIA BORDERLINE T WAVE ABNORMALITY- HIGH LATERAL LEADS BASELINE WANDER- II, III, AVR, AVL, AVF, V1-V6 ABNORMAL ECG Electronically Signed On 07-16-2020 7:23:00 BRANCH SERVICE LEADER by Jesse Beltran D.O.
--- NOTE | 2020-07-15 15:46 | PM.IMHP ---
H&P: HPI History of Present Illness Date/Time: 07/15/20 15:46 Chief complaint: swing to acute respiratory failure Narrative: He Swenson is a 64 year old male with a history of for current bladder cancer admitted to a swing bed on July 12 for rehabilitation after having been admitted to [facility] for hyponatremia, hyperkalemia, acute renal failure, and seizures. He had a bladder outlet obstruction and is now known to have brain, biliary, urinary tract, and pelvic bone metastases. While at [facility] he was diagnosed with a pulmonary embolism and IVC filter was placed. He has also had ureteral and biliary stents placed. On admission his oxygen requirements 2 L per minute by nasal cannula with an increase in oxygen for activity. Patient is undergoing rehab so that he can have palliative immuno and radiotherapy on discharge. Over last 3 days his oxygen requirements have increased to the point where this morning he was on 7 L by nasal cannula is currently on 4 L by simple mask. Patient states he has had no chest pain, chest pressure, cough, sputum production, fever, chills, abdominal pain, dysuria, rash, nausea or vomiting. Review of Systems Constitutional: Constitutional: Denies anorexia, Denies chills, Denies fever(s) and Reports weakness Eyes: Eyes: Denies change in vision and Denies photophobia ENT: Denies nasal congestion, Denies odynophagia, Denies sore throat and Denies throat swelling Cardiovascular: Cardiovascular: Denies chest pain, Denies chest pain with activity, Denies edema, Reports dyspnea and Reports dyspnea on exertion Respiratory: Respiratory: Denies chest congestion, Denies cough, Denies pain on inspiration and Reports dyspnea Gastrointestinal: Gastrointestinal: Denies abdominal pain, Denies melena, Denies hematochezia, Denies diarrhea, Denies nausea and Denies vomiting Genitourinary: Genitourinary: Denies hematuria, Denies dysuria and Denies urinary frequency Musculoskeletal: Musculoskeletal: Denies arthralgias, Denies joint swelling and Denies limited range of motion Integumentary/Breasts: Skin/Breast: Denies change in pigmentation, Denies pruritus, Denies erythema and Denies rash Neurologic: Denies Abnormal speech present, Denies confusion, Denies dizziness, Denies headache(s) and Denies numbness Hematologic/Lymphatic: Hematologic/Lymphatic: Denies easy bleeding and Reports easy bruising Allergic/Immunologic: Allergic/Immunologic: Denies urticaria, Denies lip swelling and Denies tongue swelling PMFSH Past Medical History Medical History Atrophy of right kidney Bladder cancer metastasized to bone Bladder cancer metastasized to brain Generalized muscle weakness Hyponatremia Pulmonary embolism Shortness of breath on exertion Urinary obstruction Surgical History Surgical History History of biliary stent insertion S/P ureteral stent placement Social History Social History Smoking status: Former smoker Second hand tobacco smoke exposure: Yes Alcohol intake: never Substance use: current Substance use type: marijuana Last use: 06/18/2020 Spiritual care concerns: No Meds Home Medications and Allergies Home Medications Medication Instructions Recorded Confirmed Type famotidine 20 mg PO DAILY 06/26/20 07/12/20 History acetaminophen [Acetaminophen Extra 500 mg PO Q6H PRN 07/12/20 07/12/20 History Strength] hyoscyamine sulfate 0.125 mg PO Q4H PRN 07/12/20 07/12/20 History melatonin 5 mg PO HS PRN 07/12/20 07/12/20 History phenytoin sodium extended 300 mg PO HS 07/12/20 07/12/20 History sennosides-docusate sodium [Senna 1 tab-cap PO HS PRN 07/12/20 07/12/20 History with Docusate Sodium] tamsulosin 0.4 mg PO DAILY 07/12/20 07/12/20 History levofloxacin 500 mg PO DAILY 4 Days #4 tablet 07/15/20 Rx All
[2020-07-15 16:24] LABS: BNP 382 pg/mL (0-100)
[2020-07-15 16:28] LABS: Troponin I < 0.02 ng/mL (0.00-0.056)
[2020-07-15 17:31] LABS: HCO3 ABG 22.1 mmol/L (23-29); Modified Allen's Test Pass; Oxygen Content ABG 10.3 %vol (16.0-22.0); Oxygen Saturation ABG 83.7 % (95-97); Oxyhemoglobin 82.9 % (94-100); PCO2 ABG 27.1 mmHg (35-45); PO2 ABG 46.5 mmHg (80-90); Site Drawn RIGHT RADIAL; Total Hemoglobin 8.8 g/dL; pH ABG 7.53 (7.35-7.45)
[2020-07-15 17:32] LABS: Device NON-REBREATHER MASK
[2020-07-15] MEDS: ALBUTEROL SULFATE (*SP) INHALER 4 PUFF INHALATION ×2 (18:47→23:56)
--- NOTE | 2020-07-15 19:49 | PC.NURSE ---
pt resting in bed, called for update on phone, no word on transfer yet, cont pulse ox at 89, pt c/o lower right abd pain while dr is in to check on him, dr performs focused physical exam
[2020-07-15] MEDS: MELATONIN 5 MG TABLET PO (21:41)
[2020-07-15] MEDS: SENNA/DOCUSATE SODIUM TABLET 1 TAB PO (21:41)
--- NOTE | 2020-07-15 22:21 | PC.NURSE ---
pt attempting to void in urinal, states he is having some trouble peeing, abdomen palpated, pt c/o mild discomfort upon applying pressure to left lower abd, tele leads reconnected
[2020-07-15] MEDS: PHENYTOIN SODIUM 100 MG CAP 300 MG PO (22:25)
[2020-07-15 22:27] LABS: Troponin I < 0.02 ng/mL (0.00-0.056)
[2020-07-16] VITALS (20 sets, daily range): BP systolic 84–117; BP diastolic 55–73; PULSE 99–128; RESP 20–28; TEMP 35.9–37.3; O2SAT 78–100
[2020-07-16 05:20] LABS: Hematocrit 27.4 % (40.0-54.0); Hemoglobin 8.6 g/dL (14.0-18.0); Immature Platelet Fraction Pct 9.3 % (1.0-7.0); Mean Corpuscular HGB Conc 31.4 g/dL (32.0-36.0); Mean Corpuscular Hemoglobin 27.9 pg (27.0-31.0); Platelet Count Result 102 K/mm3 (150-420); Red Blood Count 3.08 M/mm3 (4.70-6.10); Red Cell Distribution Width 19.7 % (11.6-14.4); White Blood Count 14.5 K/mm3 (4.8-10.8)
[2020-07-16 05:36] LABS: Alanine Aminotransferase 74 U/L (16-63); Albumin Level 1.4 g/dL (3.4-5.0); Alkaline Phosphatase 610 U/L (46-116); Anion Gap 13 mmol/L (8-16); Aspartate Amino Transferase 86 U/L (15-37); Bilirubin,Total 1.2 mg/dL (0.00-1.00); Blood Urea Nitrogen 32 mg/dL (7-18); Calcium 10.8 mg/dL (8.5-10.1); Carbon Dioxide 21 mmol/L (21-32); Chloride 102 mmol/L (98-108); Estimated Glomerular Filt Rate 45; Glucose 174 mg/dL (70-99); Osmolality Calculated 292 mOsm/kg (285-295); Sodium 136 mmol/L (136-145)
[2020-07-16 05:37] LABS: Potassium 4.5 mmol/L (3.5-5.1)
[2020-07-16] MEDS: ALBUTEROL SULFATE (*SP) INHALER 4 PUFF INHALATION ×3 (05:37→18:50)
[2020-07-16 05:50] LABS: Total Cells Counted 100
[2020-07-16 05:51] LABS: Band Neutrophils Percent 3 % (0-6); Lymphocytes Absolute Manual 0.87 K/mm3 (1.1-4.5); Lymphocytes Percent Manual 6 % (18-44); Metamyelocytes Percent 1 %; Monocytes Absolute Manual 0.87 K/mm3 (0.1-0.90); Monocytes Percent Manual 6 % (3-9); Myelocytes Percent 2 %; Neutrophils Absolute Manual 12.32 K/mm3 (1.3-6.7); Neutrophils Percent Manual 82 % (46-73); Platelet Estimate Decreased (Adequate)
--- NOTE | 2020-07-16 07:56 | PM.IMPN ---
Progress Note: A&P Assessment and Plan (1) Respiratory failure with hypoxia: Code(s): J96.91 - Respiratory failure, unspecified with hypoxia Status: Acute Assessment and Plan: Patient has mild dyspnea with no signs of fatigue. Anticipating the need for intervention and need for closer monitoring we will admit him to a monitored bed. Oxygen supplementation to maintain sats over 92%. Negative chest x-ray. Blood and urine cultures were obtained and the patient was started on daily Levaquin. SARS-CoV-2 test pending. Will add albuterol. Discussed possible transfer to [facility] with family, Dr. Aiken ([facility] Hem/Onc for Dr Cotto), and he has been accepted by Dr. Laws (Hospitalist) for admission. There may be a 2 day wait for a bed at [facility]. 07/16/2020 patient has a little increased work of breathing, put him on high-flow nasal cannula because his SpO2 was in the 60s while eating breakfast because he had his non-rebreather mask on top of his head, at this time he is eating lunch with a high-flow nasal cannula and his SpO2 is 95%, CT of the lungs recommended by Dr. Cotto shows likely infective process and is being treated with Levaquin (2) Hyponatremia: Code(s): E87.1 - Hypo-osmolality and hyponatremia Status: Acute Assessment and Plan: Continue fluid restriction and strict I&Os. 07/16/2020 patient had a little decline in renal function and after rounding today with Dr. Pandey we agreed on administering 500 mL of normal saline at 75 mL/hour to hydrate the kidneys, this should also help with the hyponatremia (3) Pulmonary embolism: Code(s): I26.99 - Other pulmonary embolism without acute cor pulmonale Status: Acute Assessment and Plan: Patient has an IVC filter. At [facility] he was not tolerant of oral anticoagulants and his thrombocytopenia (52,000) precluded heparin treatment. 07/16/[address] with contrast today shows in the report no central pulmonary emboli, punctate scattered tree-in-bud opacities most likely infectious process or hypersensitivity pneumonitis, mild emphysema, small left pleural effusion (4) Generalized muscle weakness: Code(s): M62.81 - Muscle weakness (generalized) Status: Acute Assessment and Plan: Continue PT OT. 07/16/2020 will continue with physical therapy while monitoring oxygen saturation (5) Bladder cancer metastasized to brain: Code(s): C67.9 - Malignant neoplasm of bladder, unspecified; C79.31 - Secondary malignant neoplasm of brain Status: Acute Assessment and Plan: Continue Dilantin. 07/16/2020 continue medication (6) Anemia: Code(s): D64.9 - Anemia, unspecified Status: Acute Assessment and Plan: Monitor H&H daily to keep hemoglobin above 7. 07/16/2020 H/H 8.6/27.4 and is stable at this time, will continue to monitor Subjective Date/time seen: 07/16/20 07:56 patient has no complaints. Denies any shortness of breath though his SpO2 was in the 60s during breakfast because his face mask was on top of his head. now the patient has high-flow nasal cannula states his breathing does feel better just not as good as prior to being hospitalized in the middle of last month. Review of Systems Constitutional: Constitutional: Reports no additional constitutional complaints Cardiovascular: Cardiovascular: Reports no additional cardiovascular complaints, Denies chest pain, Denies chest pain at rest and Denies chest pain with activity Respiratory: Respiratory: Reports no additional respiratory complaints and Denies dyspnea Gastrointestinal: Gastrointestinal: Reports no additional gastrointestinal complaints Musculoskeletal: Musculoskeletal: Reports no additional musculoskeletal complaints Neurologic: Reports system reviewed and no additional complaints, except as documented Psychiatric: Psychiatric: Reports no additional psychiatric complaints Exam Const: General: cooperative
[2020-07-16] MEDS: TAMSULOSIN HCL 0.4 MG CAPSULE PO (08:57)
[2020-07-16] MEDS: FAMOTIDINE 20 MG TABLET PO (08:57)
--- NOTE | 2020-07-16 10:40 | PC.NURSE ---
Patient taken down for Chest CT via wheelchair.
--- NOTE | 2020-07-16 11:15 | PC.NURSE ---
Patient back from CT scan. Patient transferred from wheelchair to Recliner. BLE elevated. RT in room to set up HiFlo 02 on patient. Patient tolerating well. Setting at 40 lpm, and 45% Fi02.
[2020-07-16] MEDS: SODIUM CHLORIDE 0.9% IV 500 ML 75 ML IV CONT (12:05)
[2020-07-16] MEDS: ACETAMINOPHEN 500 MG TABLET PO ×2 (12:33→21:22)
--- NOTE | 2020-07-16 18:30 | PC.NURSE ---
Patient desating to 85-89% on 40L with Fi02 at 45%. Fi02 increased to 50%, 02 sat increased to 92%. Pt. tolerating well. Patient has call light and belongings at side.
[2020-07-16 19:58] LABS: SARS-CoV-2 RNA PCR Negative
--- NOTE | 2020-07-16 20:40 | PC.NURSE ---
Patient transferred from room 210 to room to 203 via bed. Pt. moved due to negative COVID result.
--- NOTE | 2020-07-16 21:01 | PC.NURSE ---
, Jennifer, notified that patient's COVID test came back negative and that patient was moved to room 203.
[2020-07-16] MEDS: PHENYTOIN SODIUM 100 MG CAP 300 MG PO (21:23)
--- NOTE | 2020-07-16 21:45 | PC.NURSE ---
Consulted with incident response engineer
--- NOTE | 2020-07-16 21:46 | PC.NURSE ---
Consulted with resp therapy regarding SPO2 changes. RT to come up and assess patient.
[2020-07-16 21:54] LABS: Base Excess ABG -0.5 mmol/L (0-2); HCO3 ABG 21.8 mmol/L (23-29); Oxygen Content ABG 10.7 %vol (16.0-22.0); Oxygen Saturation ABG 90.2 % (95-97); Oxyhemoglobin 89.1 % (94-100); PCO2 ABG 27.1 mmHg (35-45); PO2 ABG 56.1 mmHg (80-90); Total Hemoglobin 8.5 g/dL; pH ABG 7.52 (7.35-7.45)
[2020-07-16 21:57] LABS: Device NON-REBREATHER MASK; Modified Allen's Test Pass; Site Drawn RIGHT RADIAL
[2020-07-17] VITALS: BP 85/61; PULSE 108; PULSE 116; RESP 16; O2SAT 96
[2020-07-17 00:38] VITALS: TEMP 36.4
[2020-07-17] MEDS: ALBUTEROL SULFATE (*SP) INHALER 4 PUFF INHALATION ×3 (00:47→13:07)
[2020-07-17] MEDS: ACETAMINOPHEN 500 MG TABLET PO (02:40)
[2020-07-17 04:00] VITALS: BP 84/58; PULSE 105; PULSE 109; RESP 22; TEMP 36; O2SAT 94
[2020-07-17 05:44] LABS: Hematocrit 23.8 % (40.0-54.0); Hemoglobin 7.4 g/dL (14.0-18.0); Immature Platelet Fraction Pct 11.9 % (1.0-7.0); Mean Corpuscular HGB Conc 31.1 g/dL (32.0-36.0); Mean Corpuscular Hemoglobin 27.6 pg (27.0-31.0); Mean Corpuscular Volume 88.8 fL (78.0-102.0); Platelet Count Result 93 K/mm3 (150-420); Red Blood Count 2.68 M/mm3 (4.70-6.10); Red Cell Distribution Width 19.9 % (11.6-14.4); White Blood Count 13.8 K/mm3 (4.8-10.8)
[2020-07-17 05:54] LABS: Anion Gap 11 mmol/L (8-16); Blood Urea Nitrogen 37 mg/dL (7-18); Calcium 10.6 mg/dL (8.5-10.1); Carbon Dioxide 23 mmol/L (21-32); Chloride 106 mmol/L (98-108); Estimated Glomerular Filt Rate 51; Glucose 127 mg/dL (70-99); Osmolality Calculated 300 mOsm/kg (285-295); Potassium 4.6 mmol/L (3.5-5.1); Sodium 140 mmol/L (136-145)
[2020-07-17 07:50] VITALS: BP 89/62; PULSE 111; RESP 26; TEMP 36.8; O2SAT 97
[2020-07-17] MEDS: FAMOTIDINE 20 MG TABLET PO (08:31)
[2020-07-17] MEDS: TAMSULOSIN HCL 0.4 MG CAPSULE PO (08:31)
--- NOTE | 2020-07-17 09:50 | PC.NURSE ---
Patients in room. HVAC ESTIMATOR Amadeo and CC Jacquelin in room to speak with patient and patients about plan of care.
[2020-07-17] MEDS: LORazepam INJ (*CRX) 2 MG/ML VIAL 0.5 MG IV PUSH (10:57)
[2020-07-17 11:30] VITALS: PULSE 110; RESP 26; O2SAT 95
[2020-07-17] MEDS: MORPHINE SULFATE (*CRX) 2 MG/ML INJ IV PUSH (13:22)
[2020-07-17 13:30] VITALS: BP 123/107; PULSE 79; RESP 28; TEMP 36.5; O2SAT 80
--- NOTE | 2020-07-17 13:50 | PC.NURSE ---
Patients called nurse into room. Stating she thinks he passed. This nurse listened for heart tones and breath sounds, no evidience of either noted. TELLER SUPERVISOR Amadeo Welsh notified, Amadeo notifed Adam Kraus MD. Both TELLER SUPERVISOR and MD came into room to pronounce . Patients 's sister contacted to come be with patients . Patients at bedside, time allowed for family to grieve patient. [facility] notified of , Paul stated to call back when family is ready to release body.
--- NOTE | 2020-07-17 14:13 | P.DN_ITS ---
Discharge Sum: Prov Provider Primary care physician: Cher Castro MD Admitting provider: Elvis Mixon MD Discharge Sum: Diag Contributing Factors (1) Respiratory failure with hypoxia: (2) Hyponatremia: (3) Pulmonary embolism: (4) Bladder cancer metastasized to liver: (5) Bladder cancer metastasized to brain: (6) Bladder cancer metastasized to bone: (7) Generalized muscle weakness: (8) Shortness of breath on exertion: (9) Anemia: (10) Urinary obstruction: Discharge Sum: Summary Date and Time Date of admission: 07/15/20 14:51 Date of : 07/17/20 Time of : 13:50 Summary Details: Patient condition has been declining this day patient blood pressure 84/58, heart rate 105, 22, 96.8, patient required 15 L nonrebreather to keep sat above 90. Patient desats below 90% with positioning in bed. While assessing the patient this a.m. patient expressed to me that he would no longer like to go to any more hospitals and that he just wanted to go home. He also expressed the same thing to nursing staff. patient also noted that although he wants to go home his would not be accepting of the idea and wanted him to continue to be hospitalized. Patient also noted that he knows that he will never return back to normal behind his diagnosis. He also requested that we asked his to come into the hospital and we all speak together with him present. I informed patient that he would have to be honest with his and let her know that he would like to return home instead of going to another hospital. I contacted his and informed her that he requested that we meet, at that time she asked me was his vitals bad and I informed her yes. Patient's agreed to meet with us this a.m.. When his arrived to the hospital case management and I spoke with patient and his . At that time patient did tell his that he wanted to go home. She felt that the pneumonia was causing him to decline. At that time I informed her that his condition was terminal and that he would not get better but worsening. Patient's continue to focus on pneumonia. I informed her that he was being treated for the pneumonia with antibiotics that we would continue treating him. At some point during her visit patient decided that she would take the patient home as he had requested. I also spoke to and patient concerning patient's CODE STATUS at that time we agreed the patient should be DNR. hospice has been notified and plans to arrive at the hospital at 1:00 to arrange for hospice and his return home. Unfortunately patient at 1350. Patient was examined by this hospitalist pulse, heart and Breath Sounds Were absent. Dr. Kraus called to bedside. Patient declared at 1350 Additional Data Confirmation of as documented by pronouncing clinician: no pulse Family: at bedside () Additional persons at bedside: neonatal social worker Attending/PCP notified?: No Attending physician: Elvis Mixon MD Was code activated?: No Autopsy requested?: No machine cloth examiner notified?: Yes
--- NOTE | 2020-07-17 15:00 | PC.NURSE ---
This nurse spoke with [facility], Pt. is not a candidate. Patient to be released to [facility]. Family states they are ready to release patient. [facility] contacted, and will be out shortly.
--- NOTE | 2020-07-17 15:20 | PC.NURSE ---
Home here collect remains.Release of Body form signed by home and patients family. Placed on chart.
--- NOTE | 2020-07-17 15:35 | PC.NURSE ---
[facility] left with patients remains. Family aware.
== END 2020-07-17 14:50 | disposition expired | DRG 189 ==
PROVIDERS: Nurse Practitioner Family; Admitting Provider Emergency Medicine; PCP Internal Medicine; Visit Provider Emergency Medicine
DX: J96.01 Acute respiratory failure with hypoxia (principal); J18.9 Pneumonia, unspecified organism; I26.99 Other pulmonary embolism without acute cor pulmonale; C79.51 Secondary malignant neoplasm of bone; C79.31 Secondary malignant neoplasm of brain; C78.89 Secondary malignant neoplasm of other digestive organs; C79.10 Secondary malignant neoplasm of unspecified urinary organs; E87.1 Hypo-osmolality and hyponatremia; C67.9 Malignant neoplasm of bladder, unspecified; D64.9 Anemia, unspecified; Z20.828 Contact with and (suspected) exposure to other viral communicable diseases; Z87.891 Personal history of nicotine dependence
CPT/HCPCS: 36415; 36600; 71260; 80048; 80053; 82805; 83880; 84484; 85025; 85027; 85055; 87635; 93005; A9270; C9803; J2060; J2270; J7040; Q9965; U0003